=== PATIENT | female | born 1985 | race Caucasian/White ===

== ENCOUNTER 2019-04-22 18:28 | Emergency (ER) | payer OTHER, SELFPAY ==
--- OUTSIDE RECORDS SUMMARY | 2019-04-22 18:30 | XMS REPORT ---
:1985 [facility] Address [address] [place] [address] Dr. Hood [address] [place] [id number] Care Team Providers Name Role Phone Unavailable Unavailable Unavailable Problems This patient has no known problems. Allergies, Adverse Reactions, Alerts This patient has no known allergies or adverse reactions. Medications This patient has no known medications.
--- NOTE | 2019-04-22 19:27 | RAD REPORT ---
EXAM DESCRIPTION: RAD - Foot Left 3 View - 04/22/2019 7:17 pm CLINICAL HISTORY: PAIN COMPARISON: No comparisons FINDINGS: Healing fracture seen involving the base of the fifth metatarsal. Lucency is also present at the base of the fourth metatarsal which may represent additional healing fracture. No acute fractu re or dislocation evident.
[2019-04-22] MEDS ORDERED: HYDROCODONE/APAP 7.5/325 MG TAB ONE (19:42)
--- NOTE | 2019-04-22 19:42 | EDPHYS ---
Physician Documentation [facility] Name: Tiana Levine Age: 34 yrs Sex: Female : 1985 Arrival Date: 04/22/2019 Time: 18:30 Bed 25 Private MD: ED Physician Clint Paredes HPI: 04/22 19:35 This 34 yrs old Female presents to ER via Ambulatory with complaints of Foot kb Injury. 19:35 The patient presents with an injury, pain, that is acute, swelling, tenderness. The kb complaints affect the left foot. Context: The problem was sustained at home, the patient can fully bear weight, the patient is able to ambulate, wears walking boot. Onset: The symptoms/episode began/occurred 2 month(s) ago. Modifying factors: The symptoms are alleviated by nothing, the symptoms are aggravated by weight bearing, movement. Associated signs and symptoms: Pertinent positives: swelling. Severity of symptoms: At their worst the symptoms were moderate, in the emergency department the symptoms are unchanged. The patient has not experienced similar symptoms in the past. The patient has been recently seen by a physician: 2 week(s) ago. Pt reports she injured her left foot 2 months ago, got it checked out 2 weeks ago and was told she had a Lorenz Fracture. States her daughter has been in the hospital so she hasn't had time to follow up with ortho. Came in tonight because she has been feeling it pop and is concerned she has further injury. 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 - Social history:: Smoking status: Patient/guardian denies using tobacco. - Ebola Screening: : No symptoms or risks identified at this time. ROS: 19:34 Constitutional: Negative for fever, chills, and weight loss, Neck: Negative for injury, kb pain, and swelling, Cardiovascular: Negative for chest pain, palpitations, and edema, Respiratory: Negative for shortness of breath, cough, wheezing, and pleuritic chest pain, Abdomen/GI: Negative for abdominal pain, nausea, vomiting, diarrhea, and constipation, Back: Negative for injury and pain, Skin: Negative for injury, rash, and discoloration, Neuro: Negative for headache, weakness, numbness, tingling, and seizure. 19:34 MS/extremity: Positive for decreased range of motion, pain, swelling, tenderness, of the lateral aspect of left foot. Exam: 19:34 Constitutional: This is a well developed, well nourished patient who is awake, alert, kb and in no acute distress. Head/Face: Normocephalic, atraumatic. Neck: Trachea midline, no thyromegaly or masses palpated, and no cervical lymphadenopathy. Supple, full range of motion without nuchal rigidity, or vertebral point tenderness. No Meningismus. Chest/axilla: Normal chest wall appearance and motion. Nontender with no deformity. No lesions are appreciated. Cardiovascular: Regular rate and rhythm with a normal S1 and S2. No gallops, murmurs, or rubs. Normal PMI, no JVD. No pulse deficits. Respiratory: Lungs have equal breath sounds bilaterally, clear to auscultation and percussion. No rales, rhonchi or wheezes noted. No increased work of breathing, no retractions or nasal flaring. Abdomen/GI: Soft, non-tender, with normal bowel sounds. No distension or tympany. No guarding or rebound. No evidence of tenderness throughout. Skin: Warm, dry with normal turgor. Normal color with no rashes, no lesions, and no evidence of cellulitis. Neuro: Awake and alert, GCS 15, oriented to person, place, time, and situation. Cranial nerves II-XII grossly intact. Motor strength 5/5 in all extremities. Sensory grossly intact. Cerebellar exam normal. Normal gait. 19:34 Musculoskeletal/extremity: Extremities: grossly normal except: noted in the lateral aspect of left foot: decreased ROM, pain, swelling, tenderness, ROM: limited active range of motion due to pain, in the lateral aspect of left foot, Circulation is intact in all extremities. Sensation intact. Weight bearing: able to fully bear weight, with walking boot. Vital Signs: 18:44 BP 128 / 82; Pulse 93; Resp 18 S; Temp 98.5(TE); Pulse Ox 99% on R/A; Weight 72.57 kg aa5 (R); Height 5 ft. 3 in. (160.02 cm) (R); Pain 8/10; 18:44 Body Mass Index 28.34 (72.57 kg, 160.02 cm) aa5 MDM: 18:48 Patient medically screened. kb 19:33 Data reviewed: vital signs, nurses notes. Data interpreted: Pulse oximetry: on room air kb is 99 %. Interpretation: normal. Counseling: I had a detailed discussion with the patient and/or guardian regarding: the historical points, exam findings, and any diagnostic results supporting the discharge/admit diagnosis, radiology results, the need for outpatient follow up, a orthopedic surgeon, to return to the emergency department if symptoms worsen or persist or if there are any questions or concerns that arise at home. 04/22 18:55 Order name: Foot Left 3 View XRAY; Complete Time: 19:38 kb Administered Medications: 19:43 Drug: [place] (7.5 mg-325 mg) 1 tabs Route: PO; aj1 Disposition: 04/23 06:43 Co-signature as Attending Physician, Clint Paredes MD I agree with the assessment and tw4 plan of care. Disposition: 04/22/19 19:41 Discharged to Home. Impression: Nondisplaced fracture of fifth metatarsal bone, left foot - healing, Nondisplaced fracture of fourth metatarsal bone, left foot - healing. - Condition is Stable. - Discharge Instructions: Metatarsal Fracture. - Medication Reconciliation Form, Thank You Letter, Antibiotic Education, Prescription Opioid Use form. - Follow up: Emergency Department; When: As needed; Reason: Worsening of condition. Follow up: Private Physician; When: 2 - 3 days; Reason: Recheck today's complaints, Continuance of care, Re-evaluation by your physician. Signatures: Dispatcher [employer] Azalea Box, SUZIC LAURIE-Anna Geiger RN RN aj1 Hailey Goldman RN RN aa5 Clint Paredes MD MD tw4 Corrections: (The following items were deleted from the chart) 04/22 20:01 19:41 04/22/2019 19:41 Discharged to Home. Impression: Nondisplaced fracture of fifth aj1 metatarsal bone, left foot - healing; Nondisplaced fracture of fourth metatarsal bone, left foot - healing. Condition is Stable. Forms are Medication Reconciliation Form, Thank You Letter, Antibiotic Education, Prescription Opioid Use. Follow up: Emergency Department; When: As needed; Reason: Worsening of condition. Follow up: Private Physician; When: 2 - 3 days; Reason: Recheck today's complaints, Continuance of care, Re-evaluation by your physician. kb
--- NOTE | 2019-04-22 19:42 | ER ---
Nurse's Notes [facility] Name: Tiana Levine Age: 34 yrs Sex: Female : 1985 Arrival Date: 04/22/2019 Time: 18:30 Bed 25 Private MD: Diagnosis: Nondisplaced fracture of fifth metatarsal bone, left foot-healing;Nondisplaced fracture of fourth metatarsal bone, left foot-healing Presentation: 04/22 18:41 Presenting complaint: Patient states: "I already have a left foot fracture and today I aa5 heard a snap so I am worried I refractured it". Transition of care: patient was not received from another setting of care. Onset of symptoms was April 2019. Risk Assessment: Do you want to hurt yourself or someone else? Patient reports no desire to harm self or others. Initial Sepsis Screen: Does the patient meet any 2 criteria? No. Patient's initial sepsis screen is negative. Does the patient have a suspected source of infection? No. Patient's initial sepsis screen is negative. Care prior to arrival: None. 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 - Social history:: Smoking status: Patient/guardian denies using tobacco. - Ebola Screening: : No symptoms or risks identified at this time. Screenin:35 Abuse screen: Denies threats or abuse. Denies injuries from another. Nutritional aj1 screening: No deficits noted. Tuberculosis screening: No symptoms or risk factors identified. 20:00 Fall Risk Fall in past 12 months (25 points). No secondary diagnosis (0 pts). No IV (0 aj1 pts). Ambulatory Aid- None/Bed Rest/Nurse Assist (0 pts). Gait- Normal/Bed Rest/Wheelchair (0 pts) Mental Status- Oriented to own ability (0 pts). Total Venegas Fall Scale indicates Low Risk Score (25-44 pts). As available Patient and Family Educated on Fall Prevention Program and strategies. Assessment: 19:35 General: Appears in no apparent distress. comfortable, Behavior is calm, cooperative, aj1 appropriate for age. Pain: Complains of pain in lateral aspect of left foot. Neuro: Level of Consciousness is awake, alert, obeys commands, Oriented to person, place, time, situation. Cardiovascular: Patient's skin is warm and dry. Respiratory: Airway is patent Respiratory effort is even, unlabored, Respiratory pattern is regular, symmetrical. GI: No signs and/or symptoms were reported involving the gastrointestinal system. : No signs and/or symptoms were reported regarding the genitourinary system. EENT: No signs and/or symptoms were reported regarding the EENT system. Derm: No signs and/or symptoms reported regarding the dermatologic system. Skin is pink, warm \\T\\ dry. normal. Musculoskeletal: Range of motion: limited in left ankle. Vital Signs: 18:44 BP 128 / 82; Pulse 93; Resp 18 S; Temp 98.5(TE); Pulse Ox 99% on R/A; Weight 72.57 kg aa5 (R); Height 5 ft. 3 in. (160.02 cm) (R); Pain 8/10; 18:44 Body Mass Index 28.34 (72.57 kg, 160.02 cm) aa5 ED Course: 18:30 Patient arrived in ED. rg4 18:41 Arm band placed on. aa5 18:42 Triage completed. aa5 18:43 Azalea Fonseca FNP-C is [facility]. kb 18:43 Clint Paredes MD is Attending Physician. kb 19:16 Foot Left 3 View XRAY In Process Unspecified. EDMS 19:35 Anna Bangura, RN is Primary Nurse. aj1 19:35 Patient has correct armband on for positive identification. aj1 19:35 No provider procedures requiring assistance completed. aj1 19:59 Patient did not have IV access during this emergency room visit. aj1 Administered Medications: 19:43 Drug: [place] (7.5 mg-325 mg) 1 tabs Route: PO; aj1 Outcome: 19:41 Discharge ordered by . roddy 20:00 Discharged to home ambulatory. aj1 20:00 Condition: good 20:00 Discharge instructions given to patient, Instructed on discharge instructions, follow up and referral plans. Demonstrated understanding of instructions, follow-up care. 20:01 Patient left the ED. aj1 Signatures: Dispatcher [employer] EDAzalea Frausto, LAURIE-C LAURIE-Anna Geiger RN RN aj1 Hailey Goldman RN RN aa5 Valentine Keith 4
[2019-04-22 20:30] VITALS: BP 128/82; TEMP 98.5; O2SAT 99
== END 2019-04-22 20:01 | disposition home or self-care (01) ==
LOC: ER 18:28
DX: M79.672 Pain in left foot (principal); Z88.8 Allergy status to other drugs, medicaments and biological substances; Z88.2 Allergy status to sulfonamides; F90.9 Attention-deficit hyperactivity disorder, unspecified type
CPT/HCPCS: 99283

== ENCOUNTER 2020-09-04 10:34 | Emergency (ER) | payer OTHER, SELFPAY ==
--- OUTSIDE RECORDS SUMMARY | 2020-09-04 10:37 | XMS REPORT | Continuity of Care Document ---
:1985 Author Organization [facility] t Address [address] [place] [address] Dr. Reyna. [address] [place] [address] Care Team Providers Name Role Phone Provider, Urgent Care Attending Clinician Unavailable Problems This patient has no known problems. Allergies, Adverse Reactions, Alerts This patient has no known allergies or adverse reactions. Medications This patient has no known medications. Procedures This patient has no known procedures. Encounters Start End Encounter Admission Attending Care Care Encounter Source Date/Time Date/Time Type Type Clinicians Facility Department ID 2020-01-14 2020-01-14 Urgent Provider, [facility] [id number] 18:23:08 18:43:08 [facility] [id number] [facility] [id number] [place] [id number] [address] Results This patient has no known results.
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
[2020-09-04] MEDS ORDERED: ONDANSETRON 4 MG (ODT) TAB ONE (12:39)
[2020-09-04] MEDS ORDERED: KETOROLAC 30 MG/ML INJ ONE (12:39)
[2020-09-04 13:03] VITALS: TEMP 97.2
[2020-09-04 13:08] VITALS: BP 142/95; O2SAT 99
== END 2020-09-04 12:48 | disposition home or self-care (01) ==
LOC: ER 10:34
DX: G89.11 Acute pain due to trauma (principal); M62.830 Muscle spasm of back; F90.9 Attention-deficit hyperactivity disorder, unspecified type; M19.90 Unspecified osteoarthritis, unspecified site; V49.40XA Driver injured in collision with unspecified motor vehicles in traffic accident, initial encounter
CPT/HCPCS: 71045; 72128; 72131; 96372; 99284

== ENCOUNTER 2022-02-27 11:35 | Emergency (ER) | payer BC ==
--- OUTSIDE RECORDS SUMMARY | 2022-02-27 11:40 | XMS REPORT | Continuity of Care Document ---
:1985 Author Organization [facility] t Address [address] [place] [address] [address]. [address] [place] [address] Care Team Providers Name Role Phone Asked, No Pcp Primary Care Physician Unavailable Mc BURKETT, Chaz Prabhakar Attending Clinician Saji Newsome NP Attending Clinician Parish Flynn RPH Attending Clinician Unavailable Provider, [facility] Attending Clinician Unavailable Katherine Webster Attending Clinician Payers Payer Name Policy Type Policy Number Effective Date Expiration Date [facility] [id number] 2017 [facility] MEDICAID 00:00:00 Problems Condition Condition Condition Status Onset Resolution Last Treating Co mments Source Name Details Category Date Date Treatment Clinician Date COVID-19 COVID-19 Disease Active Metho di 12-26 st 00:00: Hospita 00 l Encounter Encounter Disease Active Uni vers for tubal for tubal 8-22 ity of ligation ligation 00:00: [address] Gestationa Gestationa Disease Active U nivers l diabetes l diabetes 7-16 it y of 00:00: [address] Obesity Obesity Disease Active Univers (BMI (BMI 7-16 ity of 30-39.9) 30-39.9) 00:00: [address] Allergies, Adverse Reactions, Alerts Allergy Allergy Status Severity Reaction(s) Onset Inactive Treating Comm ents Source Name Type Date Date Clinician Sulfa Propensi Active Rash Methodi (Sulfona ty to 12 st mide adverse 00:00: Hospita Antibiot reaction 00 l ics) s to drug SULFA Drug Active Rash Univers (SULFONA Class 8-26 ity of MIDE 00:00: [place] ANTIBIOT 00 Medical ICS) Branch Sulfa Propensi Active Rash Univers (Sulfona ty to 8-26 ity of mide adverse 00:00: [place] Antibiot reaction 00 Medica l ics) s Branch Social History Social Habit Start Date Stop Date Quantity Comments Source Exposure to Not sure [facility] SARS-CoV-2 [place] [facility] (event) Branch Tobacco use and 2020-12-27 2020-12-27 Smokeless tobacco [facility] exposure 00:00:00 00:00:00 non-user Alcohol intake 2020-12-27 2020-12-27 Ex-drinker [facility] 00:00:00 00:00:00 (finding) Sex Ass[birth year] [facility] 00:00:00 00:00:00 Smoking Status Start Date Stop Date Source Never smoker [facility] Branch Medications Ordered Filled Start Stop Current Ordering Indication Dosage Frequency Signature Comments Components Source Medication Medication Date Date Medication? Clinician (SIG) Name Name No known No No known Metho di medications 9-[address] 15:10: s Hospita 20 l No known No No known Metho di medications 9-[address] 15:10: s Hospita 20 l amoxicillin 2020- No [id number] 1{tbl} Take 1 Univers -clavulanat 9-30 10-08 tablet by it y of e 00:00: 04:59 mouth 2 [place] (AUGMENTIN) 00 :00 (two) Medical 875-125 mg times Branch per tablet daily for 7 days. celecoxib Yes Take by Unive rs (CELEBREX 8-22 mouth. ity of ORAL) 15:50: [place] 16 Medical Branch HYDROcodone Yes 1{tbl} Take 1 Un antony -acetaminop 8-22 tablet by ity of hen (NORCO) 00:00: mouth [place] 10-325 mg 00 every 6 Medical tablet (six) Branch hours as needed for Pain (scale 1-3), Pain (scale 4-6) or Pain (scale 7-10). Vital Signs Vital Name Observation Time Observation Value Comments Source Systolic blood 2020-01-14 23:48:00 111 mm[Hg] Univer sity of pressure [place] [facility] Diastolic blood 2020-01-14 23:48:00 68 mm[Hg] Unive rsity of pressure [place] [facility] Heart rate 2020-01-14 23:48:00 88 /min Universi ty [facility] [place] [facility] [place] Body temperature 2020-01-14 23:48:00 37.11 Kellie Univ ersity of [facility] Branch Respiratory rate 2020-01-14 23:48:00 18 /min Univ ersity of [facility] Branch Body height 2020-01-14 23:48:00 160 cm Universi ty [facility] [place] [facility] Body weight 2020-01-14 23:48:00 81.647 kg [facility]i ty [facility] [place] [facility] BMI 2020-01-14 23:48:00 31.89 kg/m2 [facility] ty [facility] [place] Oxygen saturation in 2020-01-14 23:48:00 98 /min University of Arterial blood by [facility] Pulse oximetry Branch Systolic blood 2020-01-14 23:48:00 111 mm[Hg] Univer sity of pressure [facility] Diastolic blood 2020-01-14 23:48:00 68 mm[Hg] Unive rsity of pressure [facility] Heart rate 2020-01-14 23:48:00 88 /min [facility]i ty [facility] [place] [facility] Body temperature 2020-01-14 23:48:00 37.11 Kellie Univ ersity of [place] [facility] Respiratory rate 2020-01-14 23:48:00 18 /min Univ ersity of [facility] Body height 2020-01-14 23:48:00 160 cm [facility] Body weight 2020-01-14 23:48:00 81.647 kg [facility] [place] [facility] BMI 2020-01-14 23:48:00 31.89 kg/m2 [facility] Oxygen saturation in 2020-01-14 23:48:00 98 /min University of Arterial blood by [facility] Pulse oximetry Branch Systolic blood 2020-12-27 21:32:06 104 mm[Hg] Method [facility] pressure Diastolic blood 2020-12-27 21:32:06 78 mm[Hg] [facility] pressure Heart rate 2020-12-27 21:32:06 96 /min [facility] Body temperature 2020-12-27 21:32:06 37.17 Kellie [facility] Oxygen saturation in 2020-12-27 21:32:06 100 /min [facility] Arterial blood by Pulse oximetry Respiratory rate 2020-12-27 20:00:53 18 /min [facility] Body height 2020-12-26 20:36:00 160 cm [facility] Body weight 2020-12-26 20:36:00 82.101 kg [facility] BMI 2020-12-26 20:36:00 32.06 kg/m2 [facility] Procedures This patient has no known procedures. Plan of Care Planned Activity Planned Date Details Comments Source Future Scheduled 2022-02-14 COVID-19 VACCINE [facility] Test 00:36:00 (#1) [code = COVID-19 VACCINE (#1)] Future Scheduled 2022-02-14 [facility] 00:36:00 screening (procedure) [code = 037855644] Future Scheduled 2022-02-14 Screening for [facility] Test 00:36:00 malignant neoplasm of cervix (procedure) [code = 286834280] Future Scheduled 2022-02-14 INFLUENZA VACCINE Method [facility] Test 00:36:00 [code = INFLUENZA VACCINE] Future Scheduled 2022-02-14 HEPATITIS B [facility] Test 00:36:00 VACCINES (1 of 3 - 3-dose series) [code = HEPATITIS B VACCINES (1 of 3 - 3-dose series)] Future Scheduled 2021-05-17 COVID-19 VACCINE [facility] Test 17:21:48 (1) [code = COVID-19 VACCINE (1)] Future Scheduled 2021-05-17 [facility] Test 17:21:48 screening (procedure) [code = 912433675] Future Scheduled 2021-05-17 Screening for [facility] Test 17:21:48 malignant neoplasm of cervix (procedure) [code = 836517267] Future Scheduled 2021-05-17 INFLUENZA VACCINE Method [facility] Test 17:21:48 [code = INFLUENZA VACCINE] Encounters Start End Encounter Admission Attending Care Care Encounter Source Date/Time Date/Time Type Type Clinicians Facility Department ID 2020-12-28 2020-12-28 Outpatient [facility] [id number] Univers 14:00:00 14:00:00 [id number] [facility] [place] [facility] 2020-12-28 2020-12-28 Outpatient R [facility] [id number] Univers 14:00:00 14:00:00 [facility] 2020-12-27 2020-12-27 Infusion Mc, 1.2.840.1 [id number] Methodi 14:48:59 17:03:16 Chaz Prabhakar [id number] 3.430.2.7 Hospit a .3.348770 l .8 2020-12-26 2020-12-26 Virtual Jerod, 1.2.840.1 [id number] Methodi 14:35:14 15:49:39 Urgent Saji [id number] Care 3.430.2.7 Hospit a .3.159790 l .8 2020-12-26 2020-12-26 Outpatient [facility] [id number] [address] [place] [address] 00:00:00 00:00:[address] 2020-12-26 2020-12-26 Orders Jerod, 1.2.840.1 [id number] Methodi 00:00:00 00:00:[address] Only Saji [address]111.1.[address] 3.430.2.7 Hospit a .3.095873 l .8 2020-12-26 2020-12-26 Telephone Parish Flynn 1.2.840.1 [id number] Methodi 00:00:00 00:00:[address] 3.430.2.7 Hospit a .3.276314 l .8 2020-12-26 2020-12-26 Travel 1.2.840.1 [id number] [id number] Methodi 00:00:00 00:00:[address] 3.430.2.7 0.2.7.3.698 Ho spita .3.285916 084.8 l .8 2020-01-14 2020-01-14 Urgent Provider, [facility] [id number] Univers 18:23:08 18:43:[address] [facility] 350.1.13.10 ity [facility] 4.2.7.2.686 Ernst as Professio [phone] Sd dical [address] 2020-01-14 2020-01-14 Urgent Provider, [facility] [id number] 18:23:08 18:43:08 Care [facility] 350.1.13.10 Care [place] 4.2.7.2.686 Professio [phone] [place] [address] [address] 2020-01-14 2020-01-14 Outpatient R [facility] [id number] Univers 18:40:00 18:40:00 [id number] [facility] [place] [facility] 2020-01-14 2020-01-14 Outpatient R [facility] [id number] Univers 18:40:00 18:40:00 [facility] Results This patient has no known results.
--- NOTE | 2022-02-27 13:03 | RAD REPORT ---
EXAM DESCRIPTION: US - Transvaginal Study Probe - 02/27/2022 12:48 pm CLINICAL HISTORY: pelvic pain, (+) home UPT Pelvic pain. COMPARISON: No comparisons FINDINGS: The uterus is normal in size, shape and echotexture. The uterus measures 7.0 x 3.6 x 4.5 c m. The endometrial stripe measures 5 mm, normal. Both ovaries are normal in size, shape and echotexture. The right ovary measures 2.4 x 1.9 x 1.3 cm. The left ovary measures 1.4 x 1.4 x 2.3 cm. No ovarian or parovarian lesions. No adnexal masses. Normal Doppler blood flow was demonstrated to both ovaries. No significant pelvic ascites. IMPRESSION: No evidence of IUP seen.In the setting of a positive HCG level, this would be considered of unknown location. Recommend close interval follow-up HCG levels and follow-up pelvic so nogram in 7-10 days.
[2022-02-27 13:19] LABS: Lymphocytes % 29.1 % (15.3-44.8); MCV 94.4 fL (80-100); MPV 6.5 fL (7.6-11.3); RBC Red Blood Cell Count 4.02 M/uL (3.86-4.86)
[2022-02-27 13:31] LABS: Potassium 3.8 mmol/L (3.5-5.1)
--- NOTE | 2022-02-27 14:45 | EDPHYS ---
Physician Documentation [facility] Name: Tiana Levine Age: 36 yrs Sex: Female : 1985 Arrival Date: 02/27/2022 Time: 11:38 Bed DIS1 Private MD: ED Physician Vasquez Johansen HPI: 02/27 12:26 This 36 yrs old Female presents to ER via Ambulatory with complaints of Vaginal jmm Bleeding, + Preg <12wks, Low Back Pain, Flank Pain, Dizziness. 12:26 The patient presents to the emergency department with vaginal bleeding. The estimated jmm gestational age is 4 weeks. The patient has not experienced similar symptoms in the past. Patient complains of pelvic pain which radiates to her back. Home test positive. . 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 ld1 Historical: - Allergies: 11:52 Reglan; ld1 11:52 sulfamethoxazole-trimethoprim; ld1 - Home Meds: 11:52 Adderall Oral [Active]; hydroxychloroquine 200 mg oral tab 1 tab 2 times per day ld1 [Active]; pilocarpine HCl 1 % Opht drop 1 drop every 4 hours [Active]; propranolol 10 mg Oral tab 1 tab 4 times per day [Active]; duloxetine 60 mg oral CDRS 1 cap once daily [Active]; hyoscyamine sulfate 0.125 mg SL subl [Active]; methscopolamine 5 mg oral tab 1 tab 4 times per day [Active]; sertraline 50 mg oral tab 1 tab once daily [Active]; Tylenol-Codeine #4 300-60 mg Oral tab 1 tab every 4-6 hours [Active]; Butalbital Compound 50-325-40 mg Oral tab 1 tab every 4 hours [Active]; - PMHx: 11:52 ADD/ADHD; Arthritis; Narayan; Unspecified Auto Immune; ld1 - Immunization history:: Adult Immunizations up to date, Client reports receiving the 2nd dose of the Covid vaccine. - Social history:: Smoking status: Patient denies any tobacco usage or history of. Patient/guardian denies using alcohol. ROS: 12:26 Constitutional: Negative for fever, chills, and weight loss, Cardiovascular: Negative jmm for chest pain, palpitations, and edema, Respiratory: Negative for shortness of breath, cough, wheezing, and pleuritic chest pain. 12:26 Abdomen/GI: Positive for abdominal pain. 12:26 : Positive for vaginal bleeding. 12:26 All other systems are negative. Exam: 12:26 Constitutional: This is a well developed, well nourished patient who is awake, alert, jmm and in no acute distress. Head/Face: atraumatic. Eyes: EOMI, no conjunctival erythema appreciated ENT: Moist Mucus Membranes Neck: Trachea midline, Supple Chest/axilla: Normal chest wall appearance and motion. Cardiovascular: Regular rate and rhythm. No edema appreciated Respiratory: Normal respirations, no respiratory distress appreciated Abdomen/GI: Non distended Back: Normal ROM Skin: General appearance color normal 12:26 Musculoskeletal/extremity: ROM: intact in all extremities. 12:26 Skin: Appearance: Color: normal in color. 12:26 Neuro: Motor: is normal. Vital Signs: 11:52 BP 124 / 84; Pulse 95; Resp 18; Temp 98.5(O); Pulse Ox 99% on R/A; Weight 68.04 kg; ld1 Height 5 ft. 3 in. (160.02 cm); Pain 4/10; 11:52 Body Mass Index 26.57 (68.04 kg, 160.02 cm) ld1 MDM: 12:08 Patient medically screened. [facility] 14:44 Data reviewed: vital signs, nurses notes. Counseling: I had a detailed discussion with [facility] the patient and/or guardian regarding: the historical points, exam findings, and any diagnostic results supporting the discharge/admit diagnosis, lab results, radiology results, the need for outpatient follow up, to return to the emergency department if symptoms worsen or persist or if there are any questions or concerns that arise at home. Refusal of service: The patient/guardian displays adequate decision making capability and despite a detailed discussion of alternatives, benefits, risks, and consequences refuses: CT Scan. 02/27 12:00 Order name: Abo/rh Typing; Complete Time: 13:49 [facility] 02/27 12:00 Order name: Basic Metabolic Panel; Complete Time: 13:33 [facility] 02/27 12:00 Order name: CBC with Diff; Complete Time: 13:27 [facility] 02/27 13:44 Order name: HCG-Quantitative; Complete Time: 14:44 [facility] 02/27 12:00 Order name: IV Saline Lock; Complete Time: 14:03 [facility] 02/27 12:00 Order name: Labs collected and sent; Complete Time: 14:03 [facility] 02/27 12:00 Order name: NPO; Complete Time: 14:03 [facility] 02/27 12:00 Order name: Urine Dipstick-Ancillary (obtain specimen) [facility] 02/27 12:00 Order name: Urine Test (obtain specimen) [facility] 02/27 12:50 Order name: Transvaginal Study Probe; Complete Time: 13:05 EDMS Administered Medications: No medications were administered Disposition: 16:16 Co-signature as Attending Physician, Vasquez Johansen MD. rn Disposition Summary: 02/27/22 14:45 Discharge Ordered Location: Home [facility] Condition: Stable [facility] Diagnosis - Pelvic and perineal pain [facility] Followup: [facility] - With: Viki Calderon MD - When: 2 - 3 days - Reason: Recheck today's complaints, Continuance of care, Re-evaluation by your physician Discharge Instructions: - Discharge Summary Sheet [facility] - Pelvic Pain, Female [facility] Forms: - Medication Reconciliation Form [facility] - Thank You Letter [facility] - Antibiotic Education jmm - Prescription Opioid Use [facility] Signatures: Dispatcher [employer] EDMS Saran Patel PA PA [facility] Vasquez Johansen MD MD rn Dibbern, Lauren, RN RN ld1 Corrections: (The following items were deleted from the chart) 12:46 12:10 1st Trimest Single 1st Fetus+US.RAD.BRZ ordered. EDMS EDMS 12:48 12:46 Transvaginal OB ordered. EDMS EDMS
--- NOTE | 2022-02-27 14:45 | ER ---
Nurse's Notes [facility] Name: Tiana Levine Age: 36 yrs Sex: Female : 1985 Arrival Date: 02/27/2022 Time: 11:38 Bed DIS1 Private MD: Diagnosis: Pelvic and perineal pain Presentation: 02/27 11:57 Chief complaint: Patient states: LRQ pain/groin pain. Back pain X 2 weeks. Period 1 ld1 month late - reports spotting with cramping - previous tubal ligation. Took 3 test - they were positive. Coronavirus screen: At this time, the client does not indicate any symptoms associated with coronavirus-19. Ebola Screen: No symptoms or risks identified at this time. Initial Sepsis Screen: Does the patient meet any 2 criteria? No. Patient's initial sepsis screen is negative. Does the patient have a suspected source of infection? No. Patient's initial sepsis screen is negative. Risk Assessment: Do you want to hurt yourself or someone else? Patient reports no desire to harm self or others. Onset of symptoms was February 27, 2022. 11:57 Method Of Arrival: Ambulatory ld1 11:57 Acuity: DENISE 3 ld1 Triage Assessment: 11:52 General: Appears in no apparent distress. comfortable, Behavior is calm, cooperative, ld1 appropriate for age. Pain: Complains of pain in low back area, suprapubic area and right lower quadrant Pain does not radiate. Pain currently is 4 out of 10 on a pain scale. Quality of pain is described as throbbing. EENT: No signs and/or symptoms were reported regarding the EENT system. Neuro: Level of Consciousness is awake, alert, obeys commands, Oriented to person, place, time, situation, Appropriate for age. Cardiovascular: Capillary refill < 3 seconds Patient's skin is warm and dry. Respiratory: Airway is patent Respiratory effort is even, unlabored. GI: Abdomen is round non-distended, Reports cramping, nausea. : Reports cramping, vaginal bleeding that is with clots, spotty. Derm: No signs and/or symptoms reported regarding the dermatologic system. Musculoskeletal: No signs and/or symptoms reported regarding the musculoskeletal system. 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 ld1 Historical: - Allergies: 11:52 Reglan; ld1 11:52 sulfamethoxazole-trimethoprim; ld1 - Home Meds: 11:52 Adderall Oral [Active]; hydroxychloroquine 200 mg oral tab 1 tab 2 times per day ld1 [Active]; pilocarpine HCl 1 % Opht drop 1 drop every 4 hours [Active]; propranolol 10 mg Oral tab 1 tab 4 times per day [Active]; duloxetine 60 mg oral CDRS 1 cap once daily [Active]; hyoscyamine sulfate 0.125 mg SL subl [Active]; methscopolamine 5 mg oral tab 1 tab 4 times per day [Active]; sertraline 50 mg oral tab 1 tab once daily [Active]; Tylenol-Codeine #4 300-60 mg Oral tab 1 tab every 4-6 hours [Active]; Butalbital Compound 50-325-40 mg Oral tab 1 tab every 4 hours [Active]; - PMHx: 11:52 ADD/ADHD; Arthritis; Narayan; Unspecified Auto Immune; ld1 - Immunization history:: Adult Immunizations up to date, Client reports receiving the 2nd dose of the Covid vaccine. - Social history:: Smoking status: Patient denies any tobacco usage or history of. Patient/guardian denies using alcohol. Screenin:52 Abuse screen: Denies threats or abuse. Denies injuries from another. Nutritional ss screening: No deficits noted. Tuberculosis screening: Never had TB. Fall Risk None identified. Assessment: 14:52 General: Appears in no apparent distress. comfortable, Behavior is calm, cooperative. ss Neuro: Level of Consciousness is awake, alert, obeys commands, Oriented to person, place, time, situation. Cardiovascular: Capillary refill < 3 seconds is brisk. Respiratory: Airway is patent Respiratory effort is even, unlabored, Respiratory pattern is regular, symmetrical. Vital Signs: 11:52 BP 124 / 84; Pulse 95; Resp 18; Temp 98.5(O); Pulse Ox 99% on R/A; Weight 68.04 kg; ld1 Height 5 ft. 3 in. (160.02 cm); Pain 4/10; 11:52 Body Mass Index 26.57 (68.04 kg, 160.02 cm) ld1 ED Course: 11:38 Patient arrived in ED. rg4 11:52 Arm band placed on right wrist. ld1 11:53 Saran Patel PA is PHCP. [facility] 11:53 Vasquez Johansen MD is Attending Physician. [facility] 11:58 Triage completed. ld1 12:50 Transvaginal Study Probe In Process Unspecified. EDMS 13:13 Catarina Fletcher, RN is Primary Nurse. 13:13 Initial lab(s) drawn, by me, sent to lab. Inserted saline lock: 22 gauge in left iw antecubital area, using aseptic technique. Blood collected. 14:44 Viki Cadleron MD is Referral Physician. [facility] 14:51 No provider procedures requiring assistance completed. IV discontinued, intact, ss bleeding controlled, No redness/swelling at site. Pressure dressing applied. 14:52 Patient has correct armband on for positive identification. Bed in low position. Call ss light in reach. Administered Medications: No medications were administered Medication: 14:52 VIS not applicable for this client. ss Outcome: 14:45 Discharge ordered by MD. [facility] 14:51 Discharged to home ambulatory. ss 14:51 Condition: good 14:51 Discharge instructions given to patient, Instructed on discharge instructions, follow up and referral plans. Demonstrated understanding of instructions, follow-up care. 14:54 Patient left the ED. ss Signatures: Dispatcher [employer] EDNC Saran Patel PA PA Catarina Hull, JIN ABDI Brenda Duffy RN RN Valentine Keith rg4 Lauren Munoz RN RN ld1 Corrections: (The following items were deleted from the chart) 12:48 12:46 In radiology for Transvaginal OB. EDMS EDMS
[2022-02-27 16:00] VITALS: BP 124/84; TEMP 98.5; O2SAT 99
== END 2022-02-27 14:54 | disposition home or self-care (01) ==
LOC: ER 11:35
DX: R10.2 Pelvic and perineal pain (principal); F90.9 Attention-deficit hyperactivity disorder, unspecified type; Z88.2 Allergy status to sulfonamides; Z88.8 Allergy status to other drugs, medicaments and biological substances
CPT/HCPCS: 36415; 76830; 80048; 84702; 85025; 86900; 86901; 99283

== ENCOUNTER 2023-02-18 16:26 | Emergency (ER) | payer OTHER ==
--- OUTSIDE RECORDS SUMMARY | 2023-02-18 16:29 | XMS REPORT | Continuity of Care Document ---
:1985 Author Organization [facility] t Address [address] [place] [address] Care Team Providers Name Role Phone Asked, No Pcp Primary Care Physician Unavailable Mc BURKETT, Chaz Prabhakar Attending Clinician Jerod PRINT MANAGERSaji Attending Clinician Parish Flynn RPH Attending Clinician Unavailable Provider, [facility] Attending Clinician Unavailable Katherine Webster Attending Clinician Payers Payer Name Policy Type Policy Number Effective Date Expiration Date [employer] [id number] 2017 [facility] MEDICAID 00:00:00 Problems Condition Condition Condition Status Onset Resolution Last Treating Co mments Source Name Details Category Date Date Treatment Clinician Date COVID-19 COVID-19 Disease Active [facility]o di 12-26 [facility] 00:00: [facility]osp[facility] 00 l Encounter Encounter Disease Active Uni vers for tubal for tubal 8-22 ity of ligation ligation 00:00: [address] Gestationa Gestationa Disease Active U nivers l diabetes l diabetes 7-16 it y of 00:00: [place] [address] [facility] Obesity Obesity Disease Active Univers (BMI (BMI 7-16 ity of 30-39.9) 30-39.9) 00:00: [place] [address] [facility] Allergies, Adverse Reactions, Alerts Allergy Allergy Status [...] Quantity Comments Source Exposure to Not sure [facility]-CoV-2 (event) [facility] Alcohol intake 2020-12-27 2020-12-27 Ex-drinker [facility] 00:00:00 00:00:00 (finding) Hospital History of Social 2020-12-27 2020-12-[address] function 00:00:00 00:00:00 Hospital Tobacco use and 2020-01-14 2020-01-14 Never used Universit y of exposure 00:00:00 00:00:00 [facility] Sex Ass[birth year] At [birth year] [facility] 00:00:00 00:00:00 Hospital Smoking Status Start Date Stop Date Source Never smoker [facility] Medications Ordered Filled Start Stop Current Ordering Indication Dosage Frequency Signature Comments Components Source Medication Medication Date Date Medication? Clinician (SIG) Name Name No known No No known [facility]o di medications 9-[address] 15:10: [facility] l No known No No known Metho di medications 9-[address] 15:10: [facility] 20 l amoxicillin 2020- No [id number] 1{tbl} Take 1 Univers -clavulanat 9-30 10-08 [...] 23:48:00 111 mm[Hg] Univer sity of pressure [facility] Diastolic blood 2020-01-14 23:48:00 68 mm[Hg] Unive rsity of pressure [facility] Heart rate 2020-01-14 23:48:00 88 /min [facility] Body temperature 2020-01-14 23:48:00 37.11 Kellie [facility] Respiratory rate 2020-01-14 23:48:00 18 /min [facility] Body height 2020-01-14 23:48:00 160 cm [facility] Body weight 2020-01-14 23:48:00 81.647 kg [facility] BMI 2020-01-14 23:48:00 31.89 kg/m2 [facility] Oxygen saturation in 2020-01-14 23:48:00 98 /min [facility] of Arterial blood by [place] [facility] Pulse oximetry Branch Systolic blood 2020-01-14 23:48:00 111 mm[Hg] Univer sity of pressure [facility] Diastolic blood 2020-01-14 23:48:00 68 mm[Hg] Unive rsity of pressure [facility] Heart rate 2020-01-14 23:48:00 88 /min [facility] Body temperature 2020-01-14 23:48:00 37.11 Kellie [facility] Respiratory rate 2020-01-14 23:48:00 18 /min [facility] Body height 2020-01-14 23:48:00 160 cm [facility] Body weight 2020-01-14 23:48:00 81.647 kg [facility] BMI 2020-01-14 23:48:00 31.89 kg/m2 [facility] Oxygen saturation in 2020-01-14 23:48:00 98 /min [facility] Arterial blood by [place] [facility] Pulse oximetry Branch Systolic blood 2020-12-27 21:32:06 104 mm[Hg] [facility] pressure Diastolic blood 2020-12-27 21:32:06 78 mm[Hg] Metho [facility] pressure Heart rate 2020-12-27 21:32:06 96 /min [facility] Body temperature 2020-12-27 21:32:06 37.17 Kellie [facility] Oxygen saturation in 2020-12-27 21:32:06 100 /min [facility] Arterial blood by Pulse oximetry Respiratory rate 2020-12-27 20:00:53 18 /min [facility] Body height 2020-12-26 20:36:00 160 cm [facility] Body weight 2020-12-26 20:36:00 82.101 kg [facility] BMI 2020-12-26 20:36:00 32.06 kg/m2 [facility] Procedures This patient has no known procedures. Plan of Care Planned Activity Planned Date Details Comments Source Future Scheduled 2023-02-11 COVID-19 VACCINE [facility] Test 01:42:42 (#1) [code = COVID-19 VACCINE (#1)] Future Scheduled 2023-02-11 Hepatitis C [facility] Test 01:42:42 screening (procedure) [code = 493534790] Future Scheduled 2023-02-11 Screening for [facility] Test 01:42:42 malignant neoplasm of cervix (procedure) [code = 857075603] Future Scheduled 2023-02-11 INFLUENZA VACCINE [facility] Test 01:42:42 (#1) [code = INFLUENZA VACCINE (#1)] Future Scheduled 2022-02-14 [facility] 00:36:00 VACCINES (1 of 3 - 3-dose series) [code = HEPATITIS B VACCINES (1 of 3 - 3-dose series)] Future Scheduled 2022-02-14 COVID-19 VACCINE [facility] Test 00:36:00 (#1) [code = COVID-19 VACCINE (#1)] Future Scheduled 2022-02-14 [facility] 00:36:00 screening (procedure) [code = 590462913] Future Scheduled 2022-02-14 Screening for [facility] Test 00:36:00 malignant neoplasm of cervix (procedure) [code = 129356176] Future Scheduled 2022-02-14 INFLUENZA VACCINE [facility] Test 00:36:00 [code = INFLUENZA VACCINE] Future Scheduled 2021-05-17 [facility] Test 17:21:48 (1) [code = COVID-19 VACCINE (1)] Future Scheduled 2021-05-17 [facility] 17:21:48 screening (procedure) [code = 220628214] Future Scheduled 2021-05-17 [facility] Test 17:21:48 malignant neoplasm of cervix (procedure) [code = 675225577] Future Scheduled 2021-05-17 INFLUENZA VACCINE [facility] Test 17:21:48 [code = INFLUENZA VACCINE] Encounters Start End Encounter Admission Attending Care Care Encounter Source Date/Time Date/Time Type Type Clinicians Facility Department ID 2023-01-15 2023-01-15 Outpatient [facility] [id number] [place] 11:34:11 11:34:11 [id number] [place] 2023-01-08 2023-01-08 Outpatient [facility] [place] 13:55:07 13:55:07 [id number] [place] 2023-01-02 2023-01-02 Outpatient [facility] [place] 13:09:14 13:09:14 [id number] F [place] 2020-12-28 2020-12-28 Outpatient [facility] [id number] Univers 14:00:00 14:00:00 [id number] [facility] 2020-12-28 2020-12-28 Outpatient R [facility] [id number] Univers 14:00:00 14:00:00 [facility] 2020-12-27 2020-12-27 Infusion Mc, 1.2.840.1 [id number] Methodi 14:48:59 17:03:16 Chaz Prabhakar [address] 3.430.2.7 Hospit a .3.255465 l .8 2020-12-26 2020-12-26 Ander Paredes.2.840.1 [id number] Methodi 14:35:14 15:49:39 Urgent Saji [address]9952.1.[address] Care 3.430.2.7 Hospit a .3.368705 l .8 2020-12-26 2020-12-26 Outpatient [facility] [id number] [address] [place] [address] 00:00:00 00:00:[address] 2020-12-26 2020-12-26 Orders Jerod, 1.2.840.1 [id number] Methodi 00:00:00 00:00:00 Only Saji [id number] 3.430.2.7 Hospit a .3.802877 l .8 2020-12-26 2020-12-26 Telephone Parish Flynn 1.2.840.1 [id number] Methodi 00:00:00 00:00:[id number] 3.430.2.7 Hospit a .3.542329 l .8 2020-12-26 2020-12-26 Travel 1.2.840.1 1.2.873.101 [id number] Methodi 00:00:00 00:00:[address] 3.430.2.7 0.2.7.3.698 Ho spita .3.861232 084.8 l .8 2020-01-14 2020-01-14 Urgent Provider, [facility] 1.2.840.114 [id number] Univers 18:23:08 18:43:08 Care [place], Katherine [facility] 350.1.13.10 ity of Christine 4.2.7.2.686 Ernst as Professio [id number] [place] [address] 2020-01-14 2020-01-14 Urgent Provider, [facility] [id number] 18:23:08 18:43:08 Care [facility] 350.1.13.10 Care Christine 4.2.7.2.686 Professio [phone] [place] [address] [address] 2020-01-14 2020-01-14 Outpatient R [facility] [id number] Univers 18:40:00 18:40:00 [id number] ity [facility] 2020-01-14 2020-01-14 Outpatient R [facility] [id number] Univers 18:40:00 18:40:00 [facility] Results This patient has no known results.
[2023-02-18 18:10] LABS: Specific Gravity 1.012 (1.005-1.030)
[2023-02-18 18:17] LABS: Urine Bacteria None Seen /HPF (<20); Urine Crystals Unidentified Few /HPF (None Seen); Urine RBC <5 /HPF (None Seen)
[2023-02-18] MEDS ORDERED: dexAMETHasone 10 MG/ML VIAL ONE (19:03)
[2023-02-18] MEDS ORDERED: MORPHINE 4 MG/ML SYR ONE (19:03)
[2023-02-18] MEDS ORDERED: KETOROLAC 30 MG/ML INJ ONE (19:04)
[2023-02-18] MEDS ORDERED: LIDOCAINE 4% PATCH ONE (19:05)
--- NOTE | 2023-02-18 19:06 | EDPHYS ---
Physician Documentation [facility] Name: Tiana Kincaid Age: 37 yrs Sex: Female : 1985 Arrival Date: 02/18/2023 Time: 16:26 Bed DX4 Private MD: ED Physician Vasquez Johansen HPI: 02/18 17:00 This 37 yrs old Female presents to ER via Ambulatory with complaints of Low Back Pain. cp 17:00 The patient presents with pain exacerbation of chronic back pain. The symptoms are cp located in the low back. The pain radiates to the left leg. 17:00 The problem was sustained when bending over. cp 17:00 Onset: The symptoms/episode began/occurred 3 day(s) ago. Associated signs and symptoms: cp Pertinent positives: weakness, Pertinent negatives: abdominal pain, chest pain, dysuria, fever, hematuria, incontinence, numbness. Severity of symptoms: in the emergency department the symptoms are unchanged, despite home interventions. The patient has experienced similar episodes in the past, multiple times, history of chronic low back pain. Historical: - Allergies: 16:45 Reglan; cm10 16:45 sulfamethoxazole-trimethoprim; cm10 - PMHx: 16:45 ADD/ADHD; Narayan; Arthritis; Unspecified Auto Immune; cm10 - Immunization history:: Adult Immunizations unknown. - Social history:: Smoking status: Patient denies any tobacco usage or history of. ROS: 17:05 Constitutional: Negative for body aches, chills, fever, poor PO intake, cp 17:05 Cardiovascular: Negative for chest pain, edema, palpitations, cp 17:05 Respiratory: Negative for cough, shortness of breath, wheezing, 17:05 Abdomen/GI: Positive for constipation, Negative for abdominal pain, nausea, vomiting, and diarrhea, diarrhea, bowel incontinence, 17:05 Back: Positive for pain at rest, pain with movement, of the left low back, 17:05 : Positive for difficulty urinating, Negative for hematuria, burning with urination, bladder incontinence, 17:05 MS/extremity: Positive for pain, of the left leg, weakness, Negative for paresthesias, 17:05 Neuro: Negative for altered mental status, dizziness, headache, 17:05 All other systems are negative, Exam: 17:10 Constitutional: The patient appears in no acute distress, alert, awake, non-toxic, well cp developed, well nourished, uncomfortable, 17:10 Head/Face: Normocephalic, atraumatic. cp 17:10 Eyes: Periorbital structures: appear normal, Conjunctiva: normal, no exudate, no injection, Sclera: no appreciated abnormality, Lids and lashes: appear normal, bilaterally, 17:10 ENT: External ear(s): are unremarkable, Nose: is normal, Mouth: Lips: moist, Oral mucosa: pink and intact, moist, Posterior pharynx: is normal, airway is patent, no erythema, no exudate, 17:10 Neck: ROM/movement: is normal, is supple, without pain, no range of motions limitations, 17:10 Chest/axilla: Inspection: normal, 17:10 Cardiovascular: Rate: tachycardic, Rhythm: regular, Edema: is not appreciated, 17:10 Respiratory: the patient does not display signs of respiratory distress, Respirations: normal, no use of accessory muscles, no retractions, labored breathing, is not present, 17:10 Abdomen/GI: Exam negative for discomfort, distension, guarding, Inspection: abdomen appears normal, 17:10 Back: pain, that is moderate, of the left low back, ROM is painful, with all movement, 17:10 Neuro: Orientation: to person, place \T\ time. Mentation: is normal, Motor: moves all fours, strength is normal, Sensation: is normal, Vital Signs: 16:43 BP 118 / 81; Pulse 112; Resp 18; Temp 98.7(TE); Pulse Ox 100% on R/A; Weight 70.76 kg; cm10 Height 5 ft. 4 in. ; Pain 10/10; 16:43 Body Mass Index 26.78 (70.76 kg, 162.56 cm) cm10 16:43 Pain Scale: Adult cm10 MDM: 16:52 Patient medically screened. cp 18:00 Differential diagnosis: sciatica, Herniated disc UTI, cauda equina, spinal stenosis. cp 19:04 Data reviewed: vital signs, nurses notes, lab test result(s), urinalysis. cp 19:04 I considered the following discharge prescriptions or medication management in the emergency department Medications were administered in the Emergency Department. See MAR. Care significantly affected by the following chronic conditions: back pain. Counseling: I had a detailed discussion with the patient and/or guardian regarding the historical points, exam findings, and any diagnostic results supporting the discharge/admit diagnosis, lab results, the need for outpatient follow up, a family practitioner, a landscape painter, to return to the emergency department if symptoms worsen or persist or if there are any questions or concerns that arise at home. Response to treatment: improved, and as a result, I will discharge patient. 02/18 16:53 Order name: Urine Microscopic Only; Complete Time: 18:37 cp 02/18 18:38 Interpretation: Reviewed. cp 02/18 16:53 Order name: PREGU; Complete Time: 18:37 cp Administered Medications: 18:59 Drug: Ketorolac IM 30 mg IM once Route: IM; Site: right deltoid; hb 19:28 Follow up: Response: No adverse reaction hb 18:59 Drug: Dexamethasone IM 10 mg IM once Route: IM; Site: left deltoid; hb 19:28 Follow up: Response: No adverse reaction hb 18:59 Drug: morphine IM 4 mg IM once Route: IM; Site: left deltoid; hb 19:28 Follow up: Response: No adverse reaction hb 18:59 Drug: Lidoderm Topical Patch 5 % (700 mg/patch) 1 patches Topical once; leave on for 12 hb hours; cover most painful area; may cut into smaller pieces Route: Topical; Site: affected area; 19:28 Follow up: Response: No adverse reaction hb Disposition: 02/19 17:20 Co-signature as Attending Physician, Vasquez Johansen MD I reviewed the patient's care rn provided by the Advanced Practice Provider and agree with the diagnosis and treatment plan. Disposition Summary: 02/18/23 19:05 Discharge Ordered Notes: Location: Home cp Problem: new cp Symptoms: have improved cp Condition: Stable cp Diagnosis - Lumbago with sciatica, left side cp Followup: cp - With: Private Physician - When: 2 - 3 days - Reason: Recheck today's complaints Discharge Instructions: - Discharge Summary Sheet cp - Sciatica cp Forms: - Medication Reconciliation Form cp - Thank You Letter cp - Antibiotic Education cp - Prescription Opioid Use cp - Patient Portal Instructions cp - Leadership Thank You Letter cp Prescriptions: - Cyclobenzaprine 10 mg Oral Tablet - take 1 tablet ORAL route every 8 hours As needed; 30 tablet; Refills: 0, cp Product Selection Permitted - Diclofenac Sodium 75 mg Oral Tablet Sustained Release - take 1 tablet ORAL route 2 times per day; 30 tablet; Refills: 0, Product cp Selection Permitted - Medrol (Cole) 4 mg Oral Tablets, Dose Pack - take 1 tablet ORAL route as directed - follow package instructions; 1 packet; cp Refills: 0, Product Selection Permitted Signatures: Dispatcher [employer] EDVasquez Sanchez MD MD rn Page, Corey, PA PA cp Kelly James RN RN Mercy Okeefe RN RN cm10 Corrections: (The following items were deleted from the chart) 02/18 19:28 16:53 Bladder Scanner ordered. cp 02/19 13:48 02/18 17:00 The patient presents with pain that is acute, cp cp
--- NOTE | 2023-02-18 19:06 | ER ---
Nurse's Notes [facility] Name: Tiana Kincaid Age: 37 yrs Sex: Female : 1985 Arrival Date: 02/18/2023 Time: 16:26 Bed DX4 Private MD: Diagnosis: Lumbago with sciatica, left side Presentation: 02/18 16:43 Chief complaint: Patient states: that she has a herniated disc in her lower back and is cm10 due for her steroid shots. Pt states that she bent over too fast and is now having low back pain. Coronavirus screen: Vaccine status: Patient reports being unvaccinated. Client denies travel out of the [place] in the last 14 days. Ebola Screen: Patient denies travel to an Ebola-affected area in the 21 days before illness onset. No symptoms or risks identified at this time. Initial Sepsis Screen: Does the patient meet any 2 criteria? No. Patient's initial sepsis screen is negative. Does the patient have a suspected source of infection? No. Patient's initial sepsis screen is negative. Risk Assessment: Do you want to hurt yourself or someone else? Patient reports no desire to harm self or others. Onset of symptoms was February 18, 2023. 16:43 Method Of Arrival: Ambulatory 10 16:43 Acuity: DENISE 4 cm10 Triage Assessment: 19:29 General: Appears uncomfortable, Behavior is calm, cooperative, appropriate for age. hb Pain: Complains of pain in back. Historical: - Allergies: 16:45 Reglan; cm10 16:45 sulfamethoxazole-trimethoprim; cm10 - PMHx: 16:45 ADD/ADHD; Narayan; Arthritis; Unspecified Auto Immune; cm10 - Immunization history:: Adult Immunizations unknown. - Social history:: Smoking status: Patient denies any tobacco usage or history of. Screenin:28 [facility] ED Fall Risk Assessment (Adult) History of falling in the last 3 months, hb including since admission No falls in past 3 months (0 pts). Abuse screen: Denies threats or abuse. Denies injuries from another. Nutritional screening: No deficits noted. Tuberculosis screening: No symptoms or risk factors identified. Vital Signs: 16:43 BP 118 / 81; Pulse 112; Resp 18; Temp 98.7(TE); Pulse Ox 100% on R/A; Weight 70.76 kg; cm10 Height 5 ft. 4 in. ; Pain 10/10; 16:43 Body Mass Index 26.78 (70.76 kg, 162.56 cm) cm10 16:43 Pain Scale: Adult cm10 ED Course: 16:27 Patient arrived in ED. rg4 16:31 Victor Manuel Dudley PA is PHCP. cp 16:31 Vasquez Johansen MD is Attending Physician. cp 16:45 Triage completed. cm10 16:46 Arm band placed on Patient placed in an exam room, on a stretcher. cm10 18:01 PREGU Sent. cm10 18:01 Urine Microscopic Only Sent. cm10 19:27 Kelly James, JIN is Primary Nurse. hb 19:28 Patient has correct armband on for positive identification. hb 19:28 No provider procedures requiring assistance completed. Patient did not have IV access hb during this emergency room visit. Administered Medications: 18:59 Drug: Ketorolac IM 30 mg IM once Route: IM; Site: right deltoid; hb 19:28 Follow up: Response: No adverse reaction hb 18:59 Drug: Dexamethasone IM 10 mg IM once Route: IM; Site: left deltoid; hb 19:28 Follow up: Response: No adverse reaction hb 18:59 Drug: morphine IM 4 mg IM once Route: IM; Site: left deltoid; hb 19:28 Follow up: Response: No adverse reaction hb 18:59 Drug: Lidoderm Topical Patch 5 % (700 mg/patch) 1 patches Topical once; leave on for 12 hb hours; cover most painful area; may cut into smaller pieces Route: Topical; Site: affected area; 19:28 Follow up: Response: No adverse reaction hb Outcome: 19:05 Discharge ordered by . cp 19:28 Discharged to home ambulatory, hb 19:28 Condition: stable 19:28 Discharge instructions given to patient, Instructed on discharge instructions, follow up and referral plans. medication usage, Demonstrated understanding of instructions, follow-up care, medications, Prescriptions given X 3, 19:29 Patient left the ED. hb Signatures: Victor Manuel Dudley PA PA cp Kelly James, JIN RN Valentine Lopez rg4 Mercy Okeefe RN RN cm10
[2023-02-18 19:34] VITALS: BP 118/81; TEMP 98.7; O2SAT 100
== END 2023-02-18 19:29 | disposition home or self-care (01) ==
LOC: ER 16:26
DX: M54.42 Lumbago with sciatica, left side (principal); Z88.2 Allergy status to sulfonamides; Z88.8 Allergy status to other drugs, medicaments and biological substances
CPT/HCPCS: 81025; 81015; 96372; 99284; J2001; J1100

== ENCOUNTER → 2023-05-13 | Emergency (ER) | payer OTHER ==
[~2023-05-13] MED LIST: FENTANYL CITR 100 MCG/2 ML ONE; KETOROLAC 30 MG/ML INJ ONE; MORPHINE 2 MG/ML SYR ONE; MORPHINE 4 MG/ML SYR ONE; NA CHLORIDE 0.9% 1,000 ML ONE; ONDANSETRON 4 MG/2 ML VIAL ONE
[2023-05-13 14:47] LABS: Specific Gravity 1.007 (1.005-1.030); Urine Bilirubin NEGATIVE (Negative); Urine Blood Negative (Negative); Urine Clarity Clear (Clear); Urine Color Light-Yellow (Yellow); Urine Glucose NEGATIVE (Negative); Urine Protein NEGATIVE (Negative); Urine Urobilinogen Normal (Normal)
[2023-05-13 14:55] LABS: Absolute Lymphocytes (CBC) 2.2 K/uL (0.7-4.9); Hematocrit 37.7 % (36.0-45.0); Lymphocytes % 26.6 % (15.3-44.8); MCV 90.8 fL (80-100); MPV 6.9 fL (7.6-11.3); Platelets 323 thou/uL (152-406); RBC Red Blood Cell Count 4.16 M/uL (3.86-4.86)
[2023-05-13 15:05] LABS: Bilirubin Total 0.3 mg/dL (0.2-1.0); Potassium 4.3 mEq/L (3.5-5.1); Protein, Total 7.7 g/dL (6.4-8.2)
--- NOTE | 2023-05-13 15:23 | RAD REPORT ---
EXAM DESCRIPTION: CTAbdomen Pelvis Wo Contrast - 05/13/2023 3:11 pm CLINICAL HISTORY: FLANK PAIN COMPARISON: CT ABD PELVIS W CONTRAST dated 01/08/2013 TECHNIQUE: CT of the abdomen and pelvis was performed. All CT scans are performed using dose optimization technique as appropriate and may include automated exposure control or mA/KV adjustment according to patient size. FINDINGS: Lower chest: No acute abnormality. Liver: Low-density lesion in segment 4 of the liver near the falciform ligament is almost certainly b enign. Biliary: No biliary ductal dilatation. Cholelithiasis without CT is acute cholecystitis. Stomach: No significant focal abnormality. Duodenum: No significant focal abnormality. Pancreas: No significant abnormality. Spleen: No significant abnormality. Adrenal: No suspicious lesions. Kidney/ureter: No hydronephrosis. No renal calculi. Retroperitoneum: No retroperitoneal adenopathy. Vascular: No aneurysm. Bowel: Normal appendix.. Mild formed stool burden in the colon. No bowel obstruction. Peritoneum: No ascites or free air. Bladder: Grossly unremarkable. Reproductive: No adnexal masses. Bones: No acute fracture. Other: n/a IMPRESSION: No acute intra-abdominal or pelvic finding. No renal or ureteral calculi. Normal appendi x.
--- NOTE | 2023-05-13 17:50 | RAD REPORT ---
EXAM DESCRIPTION: US - Abdomen Exam Limited - 05/13/2023 5:41 pm CLINICAL HISTORY: ruq pain COMPARISON: Abdomen Pelvis Wo Contrast dated 05/13/2023 FINDINGS: The gallbladder demonstrates small mobile gallstones. No pericholecystic fluid or gallblad analilia wall thickening. The common bile duct is mildly dilated measuring 7 mm. The liver demonstrates no findings of intrahepatic biliary dilatation. IMPRESSION: Cholelithiasis without sonographic evidence of acute cholecystitis. Mild biliary ductal dilatation. Correlate with LFTs. If abnormal, could consider MRCP to further evaluate.
--- NOTE | 2023-05-13 17:58 | ER ---
Nurse's Notes [facility] Name: Tiana Kincaid Age: 38 yrs Sex: Female : 1985 Arrival Date: 05/13/2023 Time: 13:50 Bed 3 Private MD: Diagnosis: Other cholelithiasis without obstruction Presentation: 05/13 14:21 Chief complaint: Right flank pain, difficulty urinating, and blood in urine since last hb night. Hx of kidney stones. Coronavirus screen: At this time, the client does not indicate any symptoms associated with coronavirus-19. Ebola Screen: No symptoms or risks identified at this time. Initial Sepsis Screen: Does the patient meet any 2 criteria? No. Patient's initial sepsis screen is negative. Does the patient have a suspected source of infection? No. Patient's initial sepsis screen is negative. Risk Assessment: Do you want to hurt yourself or someone else? Patient reports no desire to harm self or others. Onset of symptoms was May 12, 2023. 14:21 Method Of Arrival: Ambulatory hb 14:21 Acuity: DENISE 3 hb Triage Assessment: 14:30 General: Appears uncomfortable, Behavior is cooperative, appropriate for age, anxious. bp Pain: Complains of pain in right low back and right mid back. : Reports pain in right flank(s). Historical: - Allergies: 14:23 Reglan; hb 14:23 sulfamethoxazole-trimethoprim; hb - PMHx: 14:23 ADD/ADHD; Narayan; Arthritis; Unspecified Auto Immune; hb - Immunization history:: Adult Immunizations unknown. - Social history:: Smoking status: Patient denies any tobacco usage or history of. - Family history:: not pertinent. Screenin:46 [facility] ED Fall Risk Assessment (Adult) History of falling in the last 3 months, ph including since admission No falls in past 3 months (0 pts) Score/Fall Risk Level 0 - 2 = Low Risk Oriented to surroundings, Maintained a safe environment, Provided non-skid footwear, Hourly rounding (assess needs \T\ fall precautionary measures) done. Abuse screen: Denies threats or abuse. Denies injuries from another. Nutritional screening: No deficits noted. Tuberculosis screening: No symptoms or risk factors identified. Assessment: 14:47 General: Appears in no apparent distress. uncomfortable, Behavior is cooperative, ph appropriate for age. Pain: Complains of pain in right mid back and right low back Pain radiates to right lower quadrant. Neuro: Level of Consciousness is awake, alert, obeys commands, Oriented to person, place, time, situation. Cardiovascular: Capillary refill < 3 seconds in bilateral fingers Patient's skin is warm and dry. Respiratory: Airway is patent Respiratory effort is even, unlabored. GI: Abdomen is round non-distended, Reports lower abdominal pain, nausea. : Reports pain in right flank(s), lower quadrant(s) in lower back. Derm: Skin is pink, warm \T\ dry. Musculoskeletal: Circulation, motion, and sensation intact. Range of motion: intact in all extremities. 15:38 Reassessment: Patient appears in no apparent distress at this time. Patient and/or ph family updated on plan of care and expected duration. Pain level reassessed. Patient is alert, oriented x 3, equal unlabored respirations, skin warm/dry/pink. 16:55 Reassessment: Patient appears in no apparent distress at this time. Patient is alert, bp oriented x 3, equal unlabored respirations, skin warm/dry/pink. 18:12 Reassessment: DC HOME AMBULATORY. bp Vital Signs: 14:21 BP 125 / 100; Pulse 76; Resp 16; Temp 97.8(TE); Pulse Ox 98% on R/A; Pain 10/10; hb 14:45 BP 119 / 81; Pulse 72; Resp 18; Pulse Ox 99% on R/A; ph 15:00 BP 113 / 90; Pulse 69; Resp 18; Pulse Ox 100% on R/A; ph 16:55 BP 111 / 82; Pulse 65; Resp 16; Pulse Ox 100% ; bp 14:21 Pain Scale: Adult hb ED Course: 13:53 Patient arrived in ED. mr 14:02 Santosh Foley MD is Attending Physician. rt 14:23 Triage completed. hb 14:23 Arm band placed on. hb 14:34 Initial lab(s) drawn, by me, sent to lab. Inserted saline lock: 20 gauge in left aa5 antecubital area, using aseptic technique. Blood collected. 14:35 Urine collected: clean catch specimen. aa5 14:37 Rei Jacobs, RN is Primary Nurse. bp 14:47 Patient has correct armband on for positive identification. Bed in low position. Call ph light in reach. Side rails up X 1. Pulse ox on. NIBP on. Door closed. Noise minimized. Warm blanket given. 15:12 CT Abd/Pelvis - Without Contrast In Process Unspecified. EDMS 17:02 No provider procedures requiring assistance completed. ph 17:43 US Abdomen Limited In Process Unspecified. EDMS 17:58 Mahad Stiles MD is Referral Physician. rt 18:12 IV discontinued, intact, bleeding controlled, No redness/swelling at site. Pressure bp dressing applied. Administered Medications: 14:45 Drug: morphine IVP or IV 4 mg IVP once over 4 mins Route: IVP; Infused Over: 4 mins; ph Site: left antecubital; 17:23 Follow up: Response: No adverse reaction bp 14:45 Drug: Ondansetron IVP 4 mg IVP once; over 2 minutes Route: IVP; Site: left antecubital; ph 17:23 Follow up: Response: No adverse reaction bp 14:45 Drug: NS 0.9% IV 1000 ml IV at 1 bolus Per protocol; 1000 mL bolus Route: IV; Rate: 1 ph bolus; Site: left antecubital; 17:24 Follow up: IV Status: Completed infusion; IV Intake: 1000ml bp 15:37 Drug: Ketorolac IVP 15 mg IVP once Route: IVP; Site: left antecubital; ph 17:23 Follow up: Response: No adverse reaction bp 15:37 Drug: morphine IVP or IV 2 mg IVP once over 4 mins Route: IVP; Infused Over: 4 mins; ph Site: left antecubital; 17:24 Follow up: Response: No adverse reaction bp 17:23 Drug: fentaNYL (PF) IVP 50 mcg IVP once Route: IVP; Site: left antecubital; bp Medication: 14:49 VIS not applicable for this client. ph Intake: 17:24 IV: 1000ml; Total: 1000ml. bp Outcome: 17:58 Discharge ordered by . rt 18:12 Discharged to home ambulatory, bp 18:12 Condition: stable 18:12 Discharge instructions given to patient, Instructed on discharge instructions, follow up and referral plans. medication usage, Demonstrated understanding of instructions, follow-up care, medications, Prescriptions given X 2, 18:13 Patient left the ED. bp Signatures: Dispatcher [employer] EDAK Akshat, Jia, Reg Reg mr JonesHailey, RN RN aa5 Mary Ruano RN RN Kelly Araiza, JIN RN Rei Jacobs RN RN Santosh Rowe MD MD rt
--- NOTE | 2023-05-13 17:58 | EDPHYS ---
Physician Documentation [facility] Name: Tiana Kincaid Age: 38 yrs Sex: Female : 1985 Arrival Date: 05/13/2023 Time: 13:50 Bed 3 Private MD: ED Physician Santosh Foley HPI: 05/13 18:05 This 38 yrs old Female presents to ER via Ambulatory with complaints of Possible Kidney rt Stone. 18:05 Patient presents to the ED with pain to the right upper abdomen on the side starting rt last night. She did report hematuria. She states that she has had a history of kidney stones, states that this is similar to prior episodes. Reports nausea, vomiting. Pain is sharp in nature, nonradiating. Denies other acute complaints, symptoms are moderate severity, no other aggravating relieving factors.. Historical: - Allergies: 14:23 Reglan; hb 14:23 sulfamethoxazole-trimethoprim; hb - PMHx: 14:23 ADD/ADHD; Narayan; Arthritis; Unspecified Auto Immune; hb - Immunization history:: Adult Immunizations unknown. - Social history:: Smoking status: Patient denies any tobacco usage or history of. - Family history:: not pertinent. ROS: 18:05 Constitutional: Negative for fever, chills, and weight loss, Cardiovascular: Negative rt for chest pain, palpitations, and edema, Respiratory: Negative for shortness of breath, cough, wheezing, and pleuritic chest pain, MS/Extremity: Negative for injury and deformity, Skin: Negative for injury, rash, and discoloration, Neuro: Negative for headache, weakness, numbness, tingling, and seizure, 18:05 Abdomen/GI: Positive for abdominal pain, nausea, 18:05 Back: Positive for flank pain, Negative for injury or acute deformity, 18:05 : Positive for flank pain, hematuria, Negative for Exam: 18:05 Constitutional: This is a well developed, well nourished patient who is awake, alert, rt and in no acute distress. Head/Face: Normocephalic, atraumatic. Chest/axilla: Normal chest wall appearance and motion. Nontender with no deformity. No lesions are appreciated. Cardiovascular: Regular rate and rhythm with a normal S1 and S2. No gallops, murmurs, or rubs. Normal PMI, no JVD. No pulse deficits. Respiratory: Lungs have equal breath sounds bilaterally, clear to auscultation and percussion. No rales, rhonchi or wheezes noted. No increased work of breathing, no retractions or nasal flaring. Skin: Warm, dry with normal turgor. Normal color with no rashes, no lesions, and no evidence of cellulitis. MS/ Extremity: Pulses equal, no cyanosis. Neurovascular intact. Full, normal range of motion. Neuro: Awake and alert, GCS 15, oriented to person, place, time, and situation. Cranial nerves II-XII grossly intact. Motor strength 5/5 in all extremities. Sensory grossly intact. Cerebellar exam normal. Normal gait. 18:05 Abdomen/GI: Tenderness to the right upper quadrant, no guarding, rebound, distention, 18:05 Back: Right CVAT, no midline tenderness, Vital Signs: 14:21 BP 125 / 100; Pulse 76; Resp 16; Temp 97.8(TE); Pulse Ox 98% on R/A; Pain 10/10; hb 14:45 BP 119 / 81; Pulse 72; Resp 18; Pulse Ox 99% on R/A; ph 15:00 BP 113 / 90; Pulse 69; Resp 18; Pulse Ox 100% on R/A; ph 16:55 BP 111 / 82; Pulse 65; Resp 16; Pulse Ox 100% ; bp 14:21 Pain Scale: Adult hb MDM: 14:26 Patient medically screened. rt 18:05 Differential Diagnosis Cholelithiasis, kidney stone, pyelonephritis. Data reviewed: rt vital signs, nurses notes, lab test result(s), radiologic studies. Consideration of Admission/Observation Escalation of care including admission/observation considered. Patient with cholelithiasis, improved with treatment in the ED, LFTs are normal, no signs of cholecystitis. At this time, no emergent indications for cholecystectomy, was informed to follow-up with general surgery as an outpatient.. I considered the following discharge prescriptions or medication management in the emergency department Medications were administered in the Emergency Department. See MAR. Independent interpretation of the following test(s) in the Emergency Department CT Scan: My interpretation is No kidney stone seen interpretation of CT scan images. Counseling: I had a detailed discussion with the patient and/or guardian regarding the historical points, exam findings, and any diagnostic results supporting the discharge/admit diagnosis, lab results, radiology results, the need for outpatient follow up, to return to the emergency department if symptoms worsen or persist or if there are any questions or concerns that arise at home. Response to treatment: the patient's symptoms have markedly improved after treatment. 05/13 14:28 Order name: CBC with Diff; Complete Time: 15:06 rt 05/13 14:28 Order name: CMP; Complete Time: 15:06 rt 05/13 14:28 Order name: Lipase; Complete Time: 15:06 rt 05/13 14:28 Order name: Test, Urine; Complete Time: 15:06 rt 05/13 14:28 Order name: Urinalysis w/ reflexes; Complete Time: 15:06 rt 05/13 14:28 Order name: CT Abd/Pelvis - Without Contrast; Complete Time: 15:23 rt 05/13 17:11 Order name: US Abdomen Limited; Complete Time: 17:51 rt 05/13 14:28 Order name: IV Saline Lock; Complete Time: 14:38 rt 05/13 14:28 Order name: Labs collected and sent; Complete Time: 14:38 rt Administered Medications: 14:45 Drug: morphine IVP or IV 4 mg IVP once over 4 mins Route: IVP; Infused Over: 4 mins; ph Site: left antecubital; 17:23 Follow up: Response: No adverse reaction bp 14:45 Drug: Ondansetron IVP 4 mg IVP once; over 2 minutes Route: IVP; Site: left antecubital; ph 17:23 Follow up: Response: No adverse reaction bp 14:45 Drug: NS 0.9% IV 1000 ml IV at 1 bolus Per protocol; 1000 mL bolus Route: IV; Rate: 1 ph bolus; Site: left antecubital; 17:24 Follow up: IV Status: Completed infusion; IV Intake: 1000ml bp 15:37 Drug: Ketorolac IVP 15 mg IVP once Route: IVP; Site: left antecubital; ph 17:23 Follow up: Response: No adverse reaction bp 15:37 Drug: morphine IVP or IV 2 mg IVP once over 4 mins Route: IVP; Infused Over: 4 mins; ph Site: left antecubital; 17:24 Follow up: Response: No adverse reaction bp 17:23 Drug: fentaNYL (PF) IVP 50 mcg IVP once Route: IVP; Site: left antecubital; bp Disposition Summary: 05/13/23 17:58 Discharge Ordered Notes: Location: Home rt Problem: new rt Symptoms: have improved rt Condition: Stable rt Diagnosis - Other cholelithiasis without obstruction rt Followup: rt - With: Mahad Stiles MD - When: 2 - 3 days - Reason: Discharge Instructions: - Discharge Summary Sheet rt - Cholelithiasis rt Forms: - Medication Reconciliation Form rt - Thank You Letter rt - Antibiotic Education rt - Prescription Opioid Use rt - Patient Portal Instructions rt - Leadership Thank You Letter rt Prescriptions: - acetaminophen-codeine 300-30 mg Oral tablet - take 1 tablet ORAL route every 6 hours as needed for pain; 18 tablet; Refills: rt 0, Product Selection Permitted - ondansetron 4 mg Oral Tablet,disintegrating - take 1 tablet ORAL route every 6 hours as needed for nausea; 21 tablet; rt Refills: 0, Product Selection Permitted Signatures: Dispatcher [employer] Mary Nguyen RN RN Kelly Araiza RN RN Rei Jacobs RN RN bp Santosh Foley MD MD rt
[2023-05-13 21:10] VITALS: BP 111/82; TEMP 97.8; O2SAT 100
== END ==
LOC: ER 13:50
DX: K80.80 Other cholelithiasis without obstruction (principal); Z88.2 Allergy status to sulfonamides; Z88.8 Allergy status to other drugs, medicaments and biological substances
CPT/HCPCS: 85025; 36415; 81025; 81003; 83690; 80053; 74176; 76705; J3010; J2270; J2405; J7030

== ENCOUNTER 2023-05-31 17:47 | Observation (INO) | payer OTHER ==
--- NOTE | 2023-05-31 18:42 | RAD REPORT ---
EXAM DESCRIPTION: CTAbdomen Pelvis W Contrast - 05/31/2023 6:34 pm CLINICAL HISTORY: Abdominal pain. ABD PAIN COMPARISON: CT ABD PELVIS W CONTRAST dated 01/08/2013 TECHNIQUE: Biphasic CT imaging of the abdomen and pelvis was performed with 100 ml non-ionic IV cont rast. All CT scans are performed using dose optimization technique as appropriate and may include automated exposure control or mA/KV adjustment according to patient size. FINDINGS: The lung bases are clear. The liver, spleen, pancreas, adrenal glands and kidneys are within normal limits. No bowel obstruction, free air, free fluid or abscess. The appendix is normal. No evidence of signi ficant lymphadenopathy. No suspicious bony findings. IMPRESSION: No acute intra-abdominal or pelvic finding.
--- NOTE | 2023-05-31 18:44 | RAD REPORT ---
EXAM DESCRIPTION: US - Abdomen Exam Limited - 05/31/2023 6:35 pm CLINICAL HISTORY: ABD PAIN COMPARISON: Abdomen Exam Limited dated 05/13/2023 FINDINGS: The gallbladder demonstrates contraction with small gallstones. No pericholecystic fluid o r gallbladder wall thickening. The common bile duct is normal measuring 3 mm. The liver demonstrates no findings of intrahepatic biliary dilatation. IMPRESSION: Suspected cholelithiasis.
[2023-05-31] MEDS ORDERED: ONDANSETRON 4 MG/2 ML VIAL ONE (19:14)
[2023-05-31] MEDS ORDERED: MORPHINE 4 MG/ML SYR ONE ×2 (19:15→20:00)
[2023-05-31] MEDS ORDERED: NA CHLORIDE 0.9% 1,000 ML ONE (19:15)
[2023-05-31 19:20] LABS: Urine Bacteria None Seen /HPF (<20); Urine Bilirubin NEGATIVE (Negative); Urine Blood Negative (Negative); Urine Clarity Clear (Clear); Urine Color Yellow (Yellow); Urine Crystals Unidentified Few /HPF (None Seen); Urine Glucose NEGATIVE (Negative); Urine Mucus Slight /HPF (None Seen); Urine Protein TRACE (Negative); Urine Urobilinogen Normal (Normal); Urine pH 6.5 (5.0-7.0)
[2023-05-31 19:31] LABS: Absolute Lymphocytes (CBC) 2.6 K/uL (0.7-4.9); Albumin 3.7 g/dL (3.4-5.0); Bilirubin Total 0.4 mg/dL (0.2-1.0); Hematocrit 36.4 % (36.0-45.0); Lymphocytes % 32.3 % (15.3-44.8); MCV 90.3 fL (80-100); MPV 6.9 fL (7.6-11.3); Platelets 261 thou/uL (152-406); Potassium 3.8 mEq/L (3.5-5.1); Protein, Total 6.9 g/dL (6.4-8.2); RBC Red Blood Cell Count 4.03 M/uL (3.86-4.86)
--- NOTE | 2023-05-31 20:12 | ER ---
Nurse's Notes [facility] Name: Tiana Kincaid Age: 38 yrs Sex: Female : 1985 Arrival Date: 05/31/2023 Time: 17:47 Bed 13 Private MD: Diagnosis: Other cholelithiasis without obstruction Presentation: 05/31 18:01 Chief complaint: Patient states: Still having upper abdominal pain from last visit here ll1 2 weeks ago, diagnosed with gallstones. + nausea, sweating, fatigue. Coronavirus screen: Client denies travel out of the [place] in the last 14 days. At this time, the client does not indicate any symptoms associated with coronavirus-19. Ebola Screen: Patient denies travel to an Ebola-affected area in the 21 days before illness onset. Initial Sepsis Screen: Does the patient meet any 2 criteria? No. Patient's initial sepsis screen is negative. Does the patient have a suspected source of infection? Yes: Acute abdominal pain. Risk Assessment: Do you want to hurt yourself or someone else? Patient reports no desire to harm self or others. Onset of symptoms was May 17, 2023. 18:01 Method Of Arrival: Ambulatory ll1 18:01 Acuity: DENISE 3 ll1 Triage Assessment: 18:03 General: Appears uncomfortable, Behavior is calm, cooperative, appropriate for age. ll1 Pain: Complains of pain in abdomen Pain currently is 8 out of 10 on a pain scale. Quality of pain is described as aching. GI: Reports upper abdominal pain, nausea. Historical: - Allergies: 18:02 sulfamethoxazole-trimethoprim; ll1 18:02 Reglan; ll1 - PMHx: 18:02 ADD/ADHD; Arthritis; Narayan; Unspecified Auto Immune; gallstones (Unspecified Auto ll1 Immune); - Immunization history:: Adult Immunizations up to date. - Social history:: Smoking status: Patient denies any tobacco usage or history of. Screenin:08 [facility] ED Fall Risk Assessment (Adult) History of falling in the last 3 months, jj7 including since admission No falls in past 3 months (0 pts) Confusion or Disorientation No (0 pts) Intoxicated or Sedated No (0 pts) Impaired Gait No (0 pts) Mobility Assist Device Used No (0 pt) Altered Elimination No (0 pt) Score/Fall Risk Level 0 - 2 = Low Risk Oriented to surroundings, Maintained a safe environment, Educated pt \T\ family on fall prevention, incl call for assistance when getting out of bed. Abuse screen: Denies threats or abuse. Nutritional screening: No deficits noted. Tuberculosis screening: No symptoms or risk factors identified. Assessment: 19:08 General: Appears in no apparent distress. uncomfortable, Behavior is calm, cooperative, jj7 appropriate for age. Pain: Complains of pain in posterior aspect of right lateral abdomen and right upper quadrant Pain currently is 8 out of 10 on a pain scale. GI: Bowel sounds present X 4 quads. Abd is soft and non tender Reports upper abdominal pain, nausea. Vital Signs: 18:01 BP 106 / 81; Pulse 92; Resp 17; Temp 98; Pulse Ox 99% ; Pain 8/10; ll1 19:08 BP 125 / 87; Pulse 81; Resp 14; Pulse Ox 98% ; Pain 8/10; jj7 20:00 BP 125 / 92; Pulse 87; Resp 16; Pulse Ox 100% ; jj7 21:23 BP 124 / 94; Pulse 81; Resp 18; Pulse Ox 97% ; Pain 4/10; jj7 18:01 Pain Scale: Adult ll1 19:08 Pain Scale: Adult jj7 21:23 Pain Scale: Adult jj7 ED Course: 17:48 Patient arrived in ED. rg4 17:49 Akira Watkins MD is Attending Physician. ec2 18:02 Triage completed. ll1 18:03 Arm band placed on. ll1 18:36 CT Abd/Pelvis - IV Contrast Only In Process Unspecified. EDMS 18:37 Abdomen Limited US In Process Unspecified. EDMS 19:08 Patient has correct armband on for positive identification. Bed in low position. Call jj7 light in reach. Adult w/ patient. 19:08 No provider procedures requiring assistance completed. Inserted saline lock: 20 gauge jj7 in left antecubital area, using aseptic technique. Blood collected. 19:24 Onur Bangura, JIN is Primary Nurse. jj7 19:26 CBC with Diff Sent. jj7 19:26 CMP Sent. jj7 19:26 Lipase Sent. jj7 20:11 Festus Clinton MD is Hospitalizing Provider. ec2 21:23 Patient admitted, IV remains in place. jj7 Administered Medications: 19:25 Drug: NS 0.9% IV 1000 ml IV at 1 bolus Per protocol; 1000 mL bolus Route: IV; Rate: 1 jj7 bolus; Site: left antecubital; 20:30 Follow up: IV Status: Completed infusion jj7 19:25 Drug: Ondansetron IVP 4 mg IVP once; over 2 minutes Route: IVP; Site: left antecubital; jj7 21:25 Follow up: Response: Nausea is decreased jj7 19:25 Drug: morphine IVP or IV 4 mg IVP once over 4 mins Route: IVP; Infused Over: 4 mins; jj7 Site: left antecubital; 21:26 Follow up: Response: Pain is unchanged, physician notified jj7 20:14 Drug: morphine IVP or IV 8 mg IVP once over 4 mins Route: IVP; Infused Over: 4 mins; jj7 Site: left antecubital; 21:25 Follow up: Response: Marked relief of symptoms jj7 Medication: 21:23 VIS not applicable for this client. jj7 Outcome: 20:11 Decision to Hospitalize by Provider. ec2 21:23 Admitted to Med/surg accompanied by tech, via wheelchair, room 415, jj7 21:23 Condition: improved 21:46 Patient left the ED. jj7 Signatures: Dispatcher [employer] Valentine Pimentel rg4 Ally Garcia RN RN ll1 Onur Bangura RN RN jj7 Akira Watkins MD MD ec2
--- NOTE | 2023-05-31 20:12 | EDPHYS ---
Physician Documentation [facility] Name: Tiana Kincaid Age: 38 yrs Sex: Female : 1985 Arrival Date: 05/31/2023 Time: 17:47 Bed 13 Private MD: ED Physician Akira Watkins HPI: 05/31 18:06 This 38 yrs old Female presents to ER via Ambulatory with complaints of ec2 Fever, Abdominal Pain. 18:06 Patient arrives today for evaluation of upper abdominal pain. Recent diagnosis of ec2 gallstones. No fevers or chills, has been having some nausea without vomiting. Does have some diarrhea as well. No significant alcohol use. Previous abdominal surgeries include .. Historical: - Allergies: 18:02 sulfamethoxazole-trimethoprim; ll1 18:02 Reglan; ll1 - PMHx: 18:02 ADD/ADHD; Arthritis; Narayan; Unspecified Auto Immune; gallstones (Unspecified Auto ll1 Immune); - Immunization history:: Adult Immunizations up to date. - Social history:: Smoking status: Patient denies any tobacco usage or history of. ROS: 18:06 Constitutional: as per hpi ec2 Exam: 18:06 Constitutional: GEN: NAD Head: atraumatic Eyes: EOMI Ears: External ears are ec2 normal. CV: regular rate LUNGS: no respiratory distress ABD: non-distended, TTP in the epigastrium, no guarding, nonrigid, right upper quadrant TTP as well. SKIN: no evidence of rashes MSK: no evidence of trauma NEURO: moves all extremities equally Vital Signs: 18:01 BP 106 / 81; Pulse 92; Resp 17; Temp 98; Pulse Ox 99% ; Pain 8/10; ll1 19:08 BP 125 / 87; Pulse 81; Resp 14; Pulse Ox 98% ; Pain 8/10; jj7 20:00 BP 125 / 92; Pulse 87; Resp 16; Pulse Ox 100% ; jj7 21:23 BP 124 / 94; Pulse 81; Resp 18; Pulse Ox 97% ; Pain 4/10; jj7 18:01 Pain Scale: Adult ll1 19:08 Pain Scale: Adult jj7 21:23 Pain Scale: Adult jj7 MDM: 18:00 Patient medically screened. ec2 18:06 Data reviewed: vital signs. ED course: Patient arrives today for for abdominal pain. ec2 Examination remarkable for abdominal findings as noted above. Will obtain ultrasound and CT imaging. Currently considering process such as cholelithiasis, cholecystitis, pancreatitis. Will treat the patient's pain as well. . 19:19 ED course: Ultrasound shows cholelithiasis, normal CBD at 3 mm, CT imaging shows no ec2 intra-abdominal acute process. . 19:33 ED course: Metabolic profile is reassuring, urine noninfectious appearing, lipase ec2 within normal ranges. . 20:11 ED course: I will admit the patient for pain control, discussed case with the surgeon ec2 who will consult, discussed case with hospitalist will admit. Will keep n.p.o. after midnight.. 05/31 18:06 Order name: CBC with Diff; Complete Time: 19:45 ec2 05/31 18:06 Order name: CMP; Complete Time: 19:33 ec2 05/31 18:06 Order name: Lipase; Complete Time: 19:33 ec2 05/31 18:06 Order name: UAM; Complete Time: 19:33 ec2 05/31 18:06 Order name: Test, Urine; Complete Time: 20:04 ec2 05/31 18:06 Order name: Abdomen Limited US; Complete Time: 19:18 ec2 05/31 18:06 Order name: CT Abd/Pelvis - IV Contrast Only; Complete Time: 19:18 ec2 05/31 20:41 Order name: CONS Physician Consult EDAZ 05/31 18:06 Order name: IV Saline Lock; Complete Time: 19:26 ec2 05/31 18:06 Order name: Labs collected and sent; Complete Time: 19:26 ec2 Administered Medications: 19:25 Drug: NS 0.9% IV 1000 ml IV at 1 bolus Per protocol; 1000 mL bolus Route: IV; Rate: 1 jj7 bolus; Site: left antecubital; 20:30 Follow up: IV Status: Completed infusion jj7 19:25 Drug: Ondansetron IVP 4 mg IVP once; over 2 minutes Route: IVP; Site: left antecubital; jj7 21:25 Follow up: Response: Nausea is decreased jj7 19:25 Drug: morphine IVP or IV 4 mg IVP once over 4 mins Route: IVP; Infused Over: 4 mins; jj7 Site: left antecubital; 21:26 Follow up: Response: Pain is unchanged, physician notified jj7 20:14 Drug: morphine IVP or IV 8 mg IVP once over 4 mins Route: IVP; Infused Over: 4 mins; jj7 Site: left antecubital; 21:25 Follow up: Response: Marked relief of symptoms jj7 Disposition Summary: 05/31/23 20:11 Hospitalization Ordered Notes: Hospitalization Status: Inpatient Admission ec2 Provider: Festus Clinton ec2 Location: Telemetry/MedSur (Inpatient) ec2 Condition: Stable ec2 Problem: an acute exacerbation ec2 Symptoms: have improved ec2 Bed/Room Type: Standard ec2 Room Assignment: 415(05/31/23 20:54) cg Diagnosis - Other cholelithiasis without obstruction ec2 Discharge Instructions: - Discharge Summary Sheet ec2 - Cholelithiasis ec2 Forms: - Medication Reconciliation Form ec2 - SBAR form ec2 - Leadership Thank You Letter ec2 Prescriptions: - acetaminophen-codeine 300-15 mg Oral tablet - take 1 tablet ORAL route every 4 to 6 hours as needed for pain; 15 tablet; ec2 Refills: 0, Product Selection Permitted Signatures: Dispatcher [employer] Blank Pimentel RN RN cg Ally Garcia RN RN ll1 Onur Bangura RN RN jj7 Akira Watkins MD MD ec2 Corrections: (The following items were deleted from the chart) 19:09 19:09 Patient medically screened. ec2 ec2 20:54 20:11 ec2 cg
[2023-05-31] MEDS ORDERED: ACETAMINOPHEN 325 MG TABLET PO PRN (20:36)
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
[2023-05-31] MEDS: NA CHLORIDE 0.9% 1,000 ML IV SCH (21:39)
[2023-05-31] MEDS: MORPHINE 2 MG/ML SYR IV PRN (22:03)
[2023-05-31] MEDS: ONDANSETRON 4 MG/2 ML VIAL IV PRN (22:03)
[2023-05-31 22:16] VITALS: BMI 31.5
[2023-05-31] MEDS: MORPHINE 2 MG/ML SYR IV ONE (22:38)
[2023-06-01] MEDS: ENOXAPARIN 40 MG/0.4 ML SQ SCH (07:36)
--- NOTE | 2023-06-01 08:26 | P.PN ---
Date of Service: 06/01/23 Subjective: reports persistent nausea / abdominal kennedy since this past Sunday. worsened with PO intake Prior to sunday symptoms were occurring more intermittently. reports occasional spotting when wiping after urinating. States regularly gets blood work to monitor. Has urology appointment scheduled coming up +headache afebrile ROS: 10 point ROS as noted above, otherwise negative Physical Exam: GEN: Alert, oriented, NAD HEENT: Normal conjunctiva, sclera anicteric, CV: Regular rate and rhythm, no edema Pulm: Nonlabored respirations on room air, clear bilaterally ABD: soft, RUQ tenderness, nondistended Neuro: Normal speech, normal affect Problem List: Cholelithiasis Persistent nausea / vomiting x5 days h/o recurrent kidney stones ADHD Gout reports persistent nausea / abdominal kennedy since this past Sunday. Prior to sunday symptoms were occurring more intermittently. Nausea / vomiting worsened with PO intake. abdominal u/s (05/31): Suspected cholelithiasis. normal CBD CT abdomen (05/31): No acute intra-abdominal or pelvic finding General surgery - Dr. Okeefe consulted to eval for possible surgical intervention NPO for now until seen by Dr. Okeefe continue IV fluids PRN analgesics / antiemetics LFTs/lipase normal urinalysis unremarkable VTE: Lovenox on hold Code: Full Dispo: Home, 1-2 days
[2023-06-01] MEDS: HYDROMORPHONE HCL 0.5 MG/0.5 ML INJ IV PRN (10:46)
[2023-06-01] MEDS ORDERED: MIDAZOLAM HCL 2 MG/2 ML INJ ONE (13:33)
[2023-06-01] MEDS ORDERED: LIDOCAINE 2% MPF 5 ML VIAL ONE (13:33)
[2023-06-01] MEDS ORDERED: FENTANYL CITR 100 MCG/2 ML ONE ×2 (13:33→14:46)
[2023-06-01] MEDS ORDERED: ROCURONIUM 50 MG/5 ML VIAL IV ONE (13:33)
[2023-06-01] MEDS ORDERED: ONDANSETRON 4 MG/2 ML VIAL ONE (13:33)
[2023-06-01] MEDS ORDERED: propofoL 200 MG/20 ML VIAL IV ONE ×2 (13:33→15:52)
[2023-06-01] MEDS: Ringers Lactate 1,000 ML IV ONE (14:04)
[2023-06-01] MEDS: CEFAZOLIN SODIUM 1 GM/VIAL ONE (14:15)
[2023-06-01] MEDS ORDERED: GLYCOPYRROLATE 0.2 MG/ML SYR ONE (14:58)
--- NOTE | 2023-06-01 15:07 | P.BOP ---
Preoperative diagnosis: acute cholecystitis, symptomatic cholelithiasis Postoperative diagnosis: same Primary procedure: Laparoscopic cholecystectomy Estimated blood loss: <10cc Specimen: gb Findings: as above Anesthesia: General Complications: None Transferred to: Recovery Room Condition: Good
[2023-06-01] MEDS: ONDANSETRON 4 MG/2 ML VIAL ONE (15:30)
[2023-06-01] MEDS: FENTANYL CITR 100 MCG/2 ML ONE (15:35)
[2023-06-01] MEDS: HYDROMORPHONE HCL 1 MG/ML INJ ONE (15:38)
[2023-06-01] MEDS ORDERED: SUCCINYLCHOLINE 20 MG/ML (10 ML) IV ONE (15:40)
[2023-06-01] MEDS: PROMETHAZINE INJ 25 MG/ML AMP ONE (15:46)
--- NOTE | 2023-06-01 16:14 | CON ---
Date of Consultation: 06/01/2023 Reason For Service: Acute abdominal pain, epigastric pain, intractable, acute cholecystitis, symptom atic cholelithiasis. Indication: This is the case of a 38-year-old patient who comes to us with epigastric right upper qu adrant pain radiating to the back, associated with nausea, bloating. It has been on and off for the last several months. Tonight just got to the point that it got worse, so she comes to the ER, diagno sed with acute cholecystitis and symptomatic cholelithiasis and a surgical consult was obtained. Den ies dysuria, hematuria, hematochezia, melena. Denies any recent traveling out of the country. Denie s any family member sick at home. Review of Systems: 10 points otherwise unremarkable. No previous colonoscopies. Allergies: SULFA. Medications: Include Reglan. Past Medical History: ADD, cholelithiasis. Social History: She does not smoke. She does not drink alcohol. Physical Examination: General: The patient is awake, alert. HEENT: Pupils are equal and reactive. Anicteric. Neck: Supple. Chest: Clear. Heart: S1, S2. Abdomen: Epigastric right upper quadrant pain, Hilario sign positive. Rest of the abdomen is soft an d depressible. Breasts, Pelvic, Rectal: Deferred. Extremities: Good capillary refill. Laboratory Data: Blood work shows WBC count of 8.10 with hemoglobin of 12.5, platelets of 261. BUN is 12. Total bilirubin of 0.4, lipase is 35. Abdominal ultrasound and CAT scan by Dr. Brady shows ch olelithiasis. Assessment: This is a 38-year-old patient with acute abdominal pain, acute cholecystitis, symptomati c cholelithiasis. Laparoscopic versus open cholecystectomy. Plan is fully explained to the patient which include, but not limited to infection, bleeding, damage to adjacent structures, anesthesia comp lication, cholelithiasis, bile leak, pancreatitis, [place], even . She also understands this may not relieve her symptoms. She might need more than one surgical intervention. She was booked in OR. SERGEY/MODL Voice ID: [id number] Report ID: [id number]
[2023-06-01 16:15] VITALS: O2SAT 95
[2023-06-01] MEDS: HYDROCODONE/APAP 5/325 MG TAB PO PRN (20:17)
[2023-06-01] MEDS ORDERED: HYOSCYAMINE SULF 0.125 MG TAB PO PRN (20:27)
[2023-06-01] MEDS: HYDROXYCHLOROQUINE 200MG TAB PO SCH (21:00)
--- NOTE | 2023-06-01 21:14 | OP ---
Date of Procedure: 06/01/2023 Surgeon: Vlad Okeefe MD Preoperative Diagnoses: Acute cholecystitis, symptomatic cholelithiasis. Postoperative Diagnoses: Acute cholecystitis, symptomatic cholelithiasis. Procedure: Laparoscopic cholecystectomy. Estimated Blood Loss: Less than 10 mL. Specimen: Gallbladder. Anesthesia: General plus local. Complications: None. Indications: This is a case of a 38-year-old patient who comes to us with above diagnoses. Fully ex plained the benefits, alternatives, and risks of laparoscopic possible open cholecystectomy which inc lude, but not limited to infection, bleeding, damage to adjacent structures, anesthesia complication, choledocholithiasis, bile leak, pancreatitis, MA, and . She also understands this may not reli marco the symptoms. She might need more than one surgical intervention. She understood, signed a cons ent. Description Of Procedure: The patient was brought to the operating room, placed in supine position. Anesthesia was done without complication. Abdominal area was prepped and draped in the usual steril e fashion. Marcaine 0.5% was injected for local anesthetic, followed by sharp incision of the skin i n the infraumbilical region. Incision was carried down to fascia, which was opened under direct visi on. Peritoneum was encountered, opened under direct vision. Vicryl #1 was placed inside the fascia. Andre trocar was carefully introduced. No bleeding was obtained. I placed 3 more trocars, 5 mm e ach one of them, 1 in epigastric area, 2 in the right upper quadrant using same technique, which cons isted of local anesthetic. Sharp incision of the skin, introduction of the trocars under direct visi on. This allowed me to put a grasper in the fundus of the gallbladder, another grasper in the infund ibulum, retracted the gallbladder in the inferolateral fashion, exposing the triangle of Calot, obtai sissy critical view. The cystic duct and cystic artery were clearly identified circumferentially and a connection between those and the gallbladder were clearly identified. I proceeded to ligate those by using at least 3 clips proximal, 1 clip distal, ligation in middle. Same was done with the cystic artery. No bile leak, no bleeding. The gallbladder was removed from liver using Bovie cauterizer a nd removed from abdominal cavity using EndoCatch through umbilical incision. After that, we inspecte d the area once again. No bile leak. No bleeding. Clips were intact. I proceeded to remove the tr ocars under direct vision, deflated pneumoperitoneum, closed the fascia with #1 Vicryl, irrigated sub cutaneous tissue, closed that with 3-0 chromic and skin with 3-0 chromic in a subcuticular fashion an d Steri-Strips on top. Sponge count, instrument counts were correct. The patient tolerated the proc edure well. The patient on her way to Recovery in stable condition. SERGEY/DANIELA Voice ID: [id number] Report ID: [id number]
[2023-06-01] MEDS: ATORVASTATIN 20 MG TAB PO SCH (21:45)
[2023-06-01] MEDS: PROPRANOLOL HCL 40 MG TAB PO SCH (21:45)
--- NOTE | 2023-06-02 08:53 | P.PN ---
Date of Service: 06/02/23 Subjective: s/p lap tanna yesterday with Dr. Okeefe passing gas, no trouble urinating abdominal pain continues, will increase pain regimen nausea significantly improved per patient. afebrile ROS: 10 point ROS as noted above, otherwise negative Physical Exam: GEN: Alert, oriented, NAD HEENT: Normal conjunctiva, sclera anicteric, CV: Regular rate and rhythm, no edema Pulm: Nonlabored respirations on room air, clear bilaterally ABD: soft, RUQ tenderness, nondistended Neuro: Normal speech, normal affect Problem List: Acute cholecystitis / symptomatic Cholelithiasis, now s/p laparoscopic cholecystectomy (06/01) Persistent nausea / vomiting x5 days, improving h/o recurrent kidney stones ADHD Gout reports persistent nausea / abdominal kennedy since this past Sunday. Prior to Sunday symptoms were occurring more intermittently. Nausea / vomiting worsened with PO intake. abdominal u/s (05/31): Suspected cholelithiasis. normal CBD CT abdomen (05/31): No acute intra-abdominal or pelvic finding General surgery - Dr. Okeefe consulted s/p cj tanna (06/01) with Dr. Okeefe serial abdominal exams Diet per surgery dc IV fluids today PRN analgesics / antiemetics [place] increased 06/02 VTE: SCD Code: Full Dispo: Home, ~anticipate later today vs tomorrow am pending better pain control
[2023-06-02] MEDS: METHSCOPOLAMINE BROMIDE 5 MG PO SCH (09:00)
[2023-06-02] MEDS: SERTRALINE HCL 50 MG TAB PO SCH (09:18)
[2023-06-02] MEDS: MULTIVITAMINS,THERAPEUT 1 TAB PO SCH (09:18)
[2023-06-02] MEDS: allopurinoL 300 MG TAB PO SCH (09:19)
[2023-06-02 09:39] LABS: Absolute Lymphocytes (CBC) 1.2 K/uL (0.7-4.9); Hematocrit 31.4 % (36.0-45.0); MCV 90.5 fL (80-100); MPV 6.9 fL (7.6-11.3); Platelets 224 thou/uL (152-406); RBC Red Blood Cell Count 3.47 M/uL (3.86-4.86)
[2023-06-02 10:06] LABS: Potassium 3.4 mEq/L (3.5-5.1)
[2023-06-02] MEDS: HYDROCODONE/APAP 7.5/325 MG TAB PO PRN (13:41)
[2023-06-02 16:19] VITALS: BP 121/71; TEMP 97.8
--- NOTE | 2023-06-02 16:58 | P.DS ---
Admission Date: 05/31/23 Discharge Date: 06/02/23 Disposition: DC HOME/HOME HEALTH CARE Discharge Condition: GOOD Reason for Admission: Abdominal pain, cholelithiasis. Consultations: General surgery - Dr. Okeefe Brief History of Present Illness: 38 yo F, PMH: ADHD Patient was evaluated for episode of persistent abdominal pain. She had persistent abdominal pain for a couple of weeks associated with worsening episode while eating. She came to the ED for evaluation in ED she had imaging studies that revealed gallstones with significant dilatation of common bile duct. No transaminitis reported on labs. Patient was admitted for inpatient care and for general surgery evaluation for possible surgical intervention. Hospital Course: Problem List: Acute cholecystitis / symptomatic Cholelithiasis, now s/p laparoscopic cholecystectomy (06/01) Persistent nausea / vomiting x5 days, improving h/o recurrent kidney stones ADHD Gout Patient presented with RUQ abdominal pain, persistent nausea/vomiting x5 days. Abdominal ultrasound noted suspected cholelithiasis and normal sized caliber common bile duct. CT abdomen / pelvis without intra-abdominal or pelvic finding. General surgery - Dr. Okeefe was consulted to eval for possible surgical intervention. Given patient's symptomatic cholelithiasis, Dr. Okeefe elected to take patient to the OR on 06/01 for laparoscopic cholecystectomy. Patient was monitored post operatively and continued to improve with time. Patient was feeling better, nausea/vomiting improved, abdominal pain tolerable, and was deemed stable for discharge home. She remained afebrile and without leukocytosis during hospitalization. She received perioperative antibiotics and Dr. Okeefe recommended 5 more days of antibiotics - augmentin Medications: [place] as needed for pain Augmentin for 5 days can take over the counter docusate for stool softener while on pain medication continue other home meds as previously prescribed Follow up: PCP 3-[address] Okeefe in ~1 week Physical Exam: GEN: Alert, oriented, NAD HEENT: Normal conjunctiva, sclera anicteric, CV: Regular rate and rhythm, no edema Pulm: Nonlabored respirations on room air, clear bilaterally ABD: soft, nontender, nondistended, dressing in place c/d/i Neuro: Normal speech, normal affect Vital Signs/Physical Exam: Temp Pulse Resp BP Pulse Ox 97.8 F 89 16 121/71 98 06/02/23 16:00 06/02/23 16:00 06/02/23 16:00 06/02/23 16:00 06/02/23 16:00 Laboratory Data at Discharge: WBC 10.40 thou/uL (4.3-10.9) 06/02/23 09:07 Hgb 10.9 g/dL (12.0-15.0) L 06/02/23 09:07 Hct 31.4 % (36.0-45.0) L 06/02/23 09:07 Plt Count 224 thou/uL (152-406) 06/02/23 09:07 Sodium 137 mEq/L (136-145) 06/02/23 09:07 Potassium 3.4 mEq/L (3.5-5.1) L 06/02/23 09:07 BUN 6 mg/dL (7-18) L 06/02/23 09:07 Creatinine 0.77 mg/dL (0.55-1.02) 06/02/23 09:07 Glucose 126 mg/dL (74-106) H 06/02/23 09:07 Magnesium 2.0 mg/dL (1.6-2.4) 06/02/23 09:07 Total Bilirubin 0.4 mg/dL (0.2-1.0) 05/31/23 18:58 AST 15 U/L (15-37) 05/31/23 18:58 ALT 28 U/L (13-56) 05/31/23 18:58 Alkaline Phosphatase 57 U/L (45-117) 05/31/23 18:58 Lipase 35 U/L (13-75) 05/31/23 18:58 Home Medications: Multivitamin with Iron [Daily Multivitamin with Iron] 1 each PO DAILY #90 tablet 12/13/16 Allopurinol 300 mg PO DAILY 06/01/23 Atorvastatin Calcium [Lipitor*] 20 mg PO BEDTIME 06/01/23 Duloxetine HCl 60 mg PO BID 06/01/23 Hydroxychloroquine [Plaquenil*] 1 tab PO BID 06/01/23 Hyoscyamine Sulfate [Levsin TAB*] 0.125 mg PO Q4HP PRN 06/01/23 Methscopolamine [place] 5 mg PO DAILY 06/01/23 Propranolol HCl 20 mg PO BID 06/01/23 Sertraline [Zoloft*] 50 mg PO DAILY 06/01/23 Amox/Clavulanate [Augmentin 875-125 Tab] 1 tab PO BID 5 Days #10 tab 06/02/23 Hydrocodone 7.5/APAP 325 [[place] 7.5/325 mg*] 1 tab PO Q6H PRN #15 tab 06/02/23 New Medications: Amox/Clavulanate [Augmentin 875-125 Tab] 1 tab PO BID 5 Days #10 tab Hydrocodone 7.5/APAP 325 [[place] 7.5/325 mg*] 1 tab PO Q6H PRN #15 tab PRN Reason: Pain Scale 5-7 (Moderate) Physician Discharge Instructions: Patient presented with RUQ abdominal pain, persistent nausea/vomiting x5 days. Abdominal ultrasound noted suspected cholelithiasis and normal sized caliber common bile duct. CT abdomen / pelvis without intra-abdominal or pelvic finding. General surgery - Dr. Okeefe was consulted to eval for possible surgical intervention. Given patient's symptomatic cholelithiasis, Dr. Okeefe elected to take patient to the OR on 06/01 for laparoscopic cholecystectomy. Patient was monitored post operatively and continued to improve with time. Patient was feeling better, nausea/vomiting improved, abdominal pain tolerable, and was deemed stable for discharge home. She remained afebrile and without leukocytosis during hospitalization. She received perioperative antibiotics and Dr. Okeefe recommended 5 more days of antibiotics - augmentin Medications: [place] as needed for pain Augmentin for 5 days can take over the counter docusate for stool softener while on pain medication continue other home meds as previously prescribed Follow up: PCP 3-[address] Okeefe in ~1 week Followup: BHARATH DIOR [Primary Care Provider] - Time spent managing pt's care (in minutes): 45
[2023-06-02] MEDS: HYDROCODONE/APAP 7.5/325 MG TAB PO ONE (17:51)
== END 2023-06-02 18:02 | disposition home health service (06) ==
LOC: ER 17:47 → ERHOLD 20:36 → 4TH 21:00 → INTOOBSV 06-02 14:52 → OBSVTOIN 06-02 14:52
PROVIDERS: ADMIT Internal Medicine Nephrology; ATTEND Hospitalist
PROC: 0FT44ZZ Resection of Gallbladder, Percutaneous Endoscopic Approach (ICD-10-PCS; principal; 2023-06-01 15:00)
DX: K80.00 Calculus of gallbladder with acute cholecystitis without obstruction (principal); F90.9 Attention-deficit hyperactivity disorder, unspecified type; M10.9 Gout, unspecified; R11.2 Nausea with vomiting, unspecified
CPT/HCPCS: 96361; 85025 ×2; 81001; 80048; 36415 ×2; 83735; 81025; 83690; 80053; 74177; 76705; 94010 ×2; 96375; 96374; 99285; 47562; Q9967; J2550; J2704; J2001; J2250; J3010 ×3; J2270 ×4; J1170 ×6; J2405 ×8; J7120; J7030 ×5; J0690

== ENCOUNTER → 2023-07-09 | Emergency (ER) | payer OTHER ==
[~2023-07-09] MED LIST changes: -MORPHINE 2 MG/ML SYR ONE; -MORPHINE 4 MG/ML SYR ONE
[2023-07-09 15:50] LABS: Absolute Basophils 0.1 K/uL (0-0.5); Absolute Eosinophils 0.2 K/uL (0-0.5); Absolute Lymphocytes (CBC) 1.8 K/uL (0.7-4.9); Absolute Monocytes 0.6 K/uL (0.1-1.3); Absolute Neutrophil 3.7 K/uL (1.8-8.0); Basophils % 1.1 % (0-1.3); Eosinophils % 3.9 % (0-4.4); Hematocrit 35.8 % (36.0-45.0); Lymphocytes % 28.1 % (15.3-44.8); MCH 30.4 pg (27.0-35.0); MCHC 33.4 g/dL (32.0-36.0); MCV 90.9 fL (80-100); Monocytes % 9.3 % (3.3-12.3); Neutrophils % 57.6 % (41.7-73.7); Platelets 242 thou/uL (152-406); RBC Red Blood Cell Count 3.94 M/uL (3.86-4.86); Red Cell Distribution Width 15.4 % (12.1-15.2)
[2023-07-09 16:07] LABS: Albumin 3.7 g/dL (3.4-5.0); Albumin/Globulin Ratio 1.2 (1.1-1.8); Anion Gap 7.1 mEq/L (5.0-15.0); Bilirubin Total 0.2 mg/dL (0.2-1.0); Potassium 4.1 mEq/L (3.5-5.1); Protein, Total 6.7 g/dL (6.4-8.2)
[2023-07-09 16:44] LABS: Specific Gravity 1.011 (1.005-1.030)
[2023-07-09 16:45] LABS: Specific Gravity 1.011 (1.005-1.030); Sqamous Epithelial <5 /HPF (None Seen); Urine Bacteria <20 /HPF (<20); Urine Bilirubin NEGATIVE (Negative); Urine Blood 3+ (Negative); Urine Clarity Clear (Clear); Urine Color Light-Yellow (Yellow); Urine Culture Reflex Order NOT NEEDED; Urine Glucose NEGATIVE (Negative); Urine Ketones NEGATIVE (Negative); Urine Microscopic Reflex YN ORDER UMIC; Urine Mucus Slight /HPF (None Seen); Urine Nitrite NEGATIVE (Negative); Urine Protein NEGATIVE (Negative); Urine RBC 21-50 /HPF (None Seen); Urine Urobilinogen Normal (Normal); Urine WBC <5 /HPF (<5); Urine pH 6.5 (5.0-7.0)
--- NOTE | 2023-07-09 17:44 | RAD REPORT ---
EXAM DESCRIPTION: CT - Abdomen Pelvis W Contrast - 07/09/2023 5:15 pm CLINICAL HISTORY: Abdominal pain COMPARISON: May 2023 TECHNIQUE: Computed axial tomography of the abdomen pelvis was obtained. 100 cc Isovue-300 was admin istered intravenously. Oral contrast was not requested which limits evaluation of bowel and appendix All CT scans are performed using dose optimization technique as appropriate and may include automated exposure control or mA/KV adjustment according to patient size. FINDINGS: The liver, spleen, pancreas, adrenal and kidneys appear unremarkable. Cholecystectomy. Tiny umbilical hernia There is no evidence of diverticulitis. Normal appendix 4.8 centimeter left ovarian simple cyst without significant free fluid. No followup imaging recommend ed IMPRESSION: 4.8 centimeter left ovarian cyst without significant free fluid
--- NOTE | 2023-07-09 17:54 | ER ---
Nurse's Notes [facility] Name: Tiana Kincaid Age: 38 yrs Sex: Female : 1985 Arrival Date: 07/09/2023 Time: 14:58 Bed 12 Private MD: Diagnosis: Lower abdominal pain, unspecified Presentation: 07/08 15:05 Chief complaint: Patient states: "I started having lower stomach pains this morning, mb9 nausea, and bloating. I had a fever this morning and took Ibuprofen 1 hr ago.". Coronavirus screen: Vaccine status: Patient reports receiving the 2nd dose of the covid vaccine. Ebola Screen: No symptoms or risks identified at this time. Initial Sepsis Screen: Does the patient meet any 2 criteria? No. Patient's initial sepsis screen is negative. Does the patient have a suspected source of infection? No. Patient's initial sepsis screen is negative. Risk Assessment: Do you want to hurt yourself or someone else? Patient reports no desire to harm self or others. Onset of symptoms was July 09, 2023. 15:05 Method Of Arrival: Ambulatory mb9 15:05 Acuity: DENISE 3 mb9 Triage Assessment: 15:07 General: Appears uncomfortable, Behavior is calm, cooperative. Pain: Complains of pain mb9 in abdomen. Neuro: Level of Consciousness is awake, alert, obeys commands, Oriented to person, place, time, situation, Appropriate for age. Cardiovascular: Patient's skin is warm and dry. Respiratory: Airway is patent Respiratory effort is even, unlabored, Respiratory pattern is regular, symmetrical. GI: Abdomen is round non-distended, Reports lower abdominal pain, nausea. : No signs and/or symptoms were reported regarding the genitourinary system. Derm: Skin is pink, warm \\T\\ dry. Musculoskeletal: Range of motion: intact in all extremities. 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: 16:20 LMP 07/09/2023, unknown tl4 Historical: - Allergies: 15:05 Reglan; mb9 15:05 sulfamethoxazole-trimethoprim; mb9 - Home Meds: 17:13 pilocarpine HCl 1 % Opht drop 1 drop every 4 hours [Active]; tl4 17:06 hydroxychloroquine 200 mg oral tablet 1 tab 2 times per day [Active]; propranolol 20 mg tl4 oral tablet 1 tab 2 times per day [Active]; sertraline 50 mg Oral tab 1 tab once daily [Active]; duloxetine 60 mg Oral CDRS 1 cap 2 times per day [Active]; hyoscyamine sulfate 0.125 mg SL subl 1 tabs as needed [Active]; Zofran Oral 8 mg daily [Active]; Robaxin Oral 750 mg nightly [Active]; atorvastatin oral daily [Active]; Allopurinol Oral [Active]; - PMHx: 15:05 ADD/ADHD; Unspecified Auto Immune; Narayan; Arthritis; mb9 17:13 Gallstones; tl4 - PSHx: 15:05 Cholecystectomy; mb9 - Immunization history:: Adult Immunizations up to date. - Social history:: Smoking status: Patient denies any tobacco usage or history of. Screenin:18 [facility] ED Fall Risk Assessment (Adult) History of falling in the last 3 months, tl4 including since admission No falls in past 3 months (0 pts) Confusion or Disorientation No (0 pts) Intoxicated or Sedated No (0 pts) Impaired Gait No (0 pts) Mobility Assist Device Used No (0 pt) Altered Elimination No (0 pt) Score/Fall Risk Level 0 - 2 = Low Risk Oriented to surroundings, Maintained a safe environment, Educated pt \\T\\ family on fall prevention, incl call for assistance when getting out of bed, Assessed \\T\\ reinforced patient's understanding of fall precautions, Hourly rounding (assess needs \\T\\ fall precautionary measures) done, Used ambulatory aids as needed (educated on \\T\\ assisted with), Used gait belt as appropriate. Abuse screen: Denies threats or abuse. Denies injuries from another. Nutritional screening: No deficits noted. Tuberculosis screening: No symptoms or risk factors identified. Assessment: 16:17 General: Appears uncomfortable, Behavior is calm, cooperative. Pain: Complains of pain tl4 in abdomen. Neuro: Level of Consciousness is awake, alert, obeys commands, Oriented to person, place, time, situation, Moves all extremities. Gait is steady, Speech is normal, Facial symmetry appears normal. Cardiovascular: Denies chest pain, palpitations, syncope, Capillary refill < 3 seconds Patient's skin is warm and dry. Respiratory: Airway is patent Respiratory effort is even, unlabored, Respiratory pattern is regular, symmetrical, Breath sounds are clear bilaterally. GI: Bowel sounds present X 4 quads. Abd is soft X 4 quads Abdomen is tender to palpation in right lower quadrant and left lower quadrant Reports lower abdominal pain. : No deficits noted. No signs and/or symptoms were reported regarding the genitourinary system. EENT: No deficits noted. No signs and/or symptoms were reported regarding the EENT system. Derm: No deficits noted. No signs and/or symptoms reported regarding the dermatologic system. Musculoskeletal: No deficits noted. No signs and/or symptoms reported regarding the musculoskeletal system. 17:03 Reassessment: No changes from previously documented assessment. Patient and/or family tl4 updated on plan of care and expected duration. Pain level reassessed. Patient is alert, oriented x 3, equal unlabored respirations, skin warm/dry/pink. Provider Azalea aware, medications ordered and given. Will continue to monitor Patient states symptoms have not improved. 18:31 Reassessment: No changes from previously documented assessment. Patient and/or family tl4 updated on plan of care and expected duration. Pain level reassessed. Patient is alert, oriented x 3, equal unlabored respirations, skin warm/dry/pink. Vital Signs: 15:05 BP 102 / 77; Pulse 86; Resp 18; Temp 98.4(O); Pulse Ox 100% on R/A; Weight 81.65 kg; mb9 Height 5 ft. 3 in. ; Pain 10/10; 16:17 BP 119 / 76; Pulse 74; Resp 18; Pulse Ox 99% on R/A; Pain 10/10; tl4 17:04 BP 113 / 79; Pulse 72; Resp 20; Pulse Ox 100% on R/A; Pain 8/10; tl4 18:31 BP 112 / 74; Pulse 76; Resp 18; Pulse Ox 100% on R/A; Pain 8/10; tl4 15:05 Body Mass Index 31.89 (81.65 kg, 160.02 cm) mb9 15:05 Pain Scale: Adult mb9 16:17 Pain Scale: Adult tl4 17:04 Pain Scale: Adult tl4 18:31 Pain Scale: Adult tl4 ED Course: 15:00 Patient arrived in ED. mg5 15:01 Azalea Fonseca FNP-C is PHCP. roddy 15:01 Roger Hopkins DO is Attending Physician. kb 15:05 Arm band placed on. mb9 15:07 Triage completed. mb9 15:27 Calos Pierre, RN is Primary Nurse. tl4 15:43 CBC with Diff Sent. tl4 15:43 CMP Sent. tl4 15:43 Lipase Sent. tl4 15:44 Initial lab(s) drawn, by me, sent to lab. Inserted saline lock: 22 gauge in right tl4 antecubital area, using aseptic technique. Blood collected. 16:19 Patient has correct armband on for positive identification. Placed in gown. Bed in low tl4 position. Call light in reach. Side rails up X2. Provided Education on: ED process. Client placed on continuous cardiac and pulse oximetry monitoring. NIBP monitoring applied. Door closed. Noise minimized. Lights dimmed. Moved to private room. Warm blanket given. 16:19 No provider procedures requiring assistance completed. tl4 17:16 CT Abd/Pelvis - IV Contrast Only In Process Unspecified. EDMS 18:31 IV discontinued, intact, bleeding controlled, No redness/swelling at site. Pressure tl4 dressing applied. Administered Medications: 15:54 Drug: NS 0.9% IV 1000 ml IV at 1 bolus Per protocol; 1000 mL bolus Route: IV; Rate: 1 tl4 bolus; Site: right antecubital; Delivery: Primary tubing; 18:33 Follow up: Response: No adverse reaction; IV Status: Completed infusion; IV Intake: tl4 1000ml 15:54 Drug: TORadol - Ketorolac IVP 15 mg IVP once Route: IVP; Site: right antecubital; tl4 16:55 Follow up: Response: No adverse reaction; Pain is unchanged, physician notified tl4 15:54 Drug: Ondansetron IVP 4 mg IVP once; over 2 minutes Route: IVP; Site: right antecubital;tl4 16:55 Follow up: Response: No adverse reaction; Nausea unchanged tl4 16:55 Drug: fentaNYL (PF) IVP 25 mcg IVP once Route: IVP; Site: right antecubital; tl4 18:33 Follow up: Response: No adverse reaction tl4 Medication: 16:20 VIS not applicable for this client. tl4 Intake: 18:33 IV: 1000ml; Total: 1000ml. tl4 Outcome: 17:53 Discharge ordered by . roddy 18:31 Discharged to home ambulatory, tl4 18:31 Condition: stable 18:31 Discharge instructions given to patient, Instructed on discharge instructions, follow up and referral plans. medication usage, Demonstrated understanding of instructions, follow-up care, medications, 18:32 Patient left the ED. tl4 Signatures: Dispatcher [employer] EDNJ Azalea Fonseca, CHLOÉ SULLIVAN-Jia Kwok RN RN mb9 Ambreen Couch mg5 Calos Pierre RN RN tl4 Corrections: (The following items were deleted from the chart) 17:15 15:05 PMHx: GALLSTONES (Unspecified Auto Im); mb9 tl4 17:15 17:06 Home Meds: pilocarpine HCl 1 % Opht drop 1 drop every 4 hours; tl4 tl4 17:15 17:06 Home Meds: duloxetine 60 mg Oral CDRS 1 cap 2 times per day; tl4 tl4 17:15 17:06 Home Meds: duloxetine 60 mg Oral CDRS 1 cap once daily; tl4 tl4
--- NOTE | 2023-07-09 17:54 | EDPHYS ---
[facility] Name: Tiana Kincaid Age: 38 yrs Sex: Female : 1985 Arrival Date: 07/09/2023 Time: 14:58 Bed 12 Private MD: ED Physician Roger Hopkins HPI: 07/08 15:18 This 38 yrs old Female presents to ER via Ambulatory with complaints of Fever, kb Abdominal Pain. 15:18 Pt is a 38 year old female who presents for abd pain that has been ongoing for a long kb time, but became worse in RLQ with fever and nausea yesterday. States she has a colonoscopy and endoscopy scheduled and recently had a cholecystectomy, but the pain isn't any better. . 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: 16:20 LMP 07/09/2023, unknown tl4 Historical: - Allergies: 15:05 Reglan; mb9 15:05 sulfamethoxazole-trimethoprim; mb9 - Home Meds: 17:13 pilocarpine HCl 1 % Opht drop 1 drop every 4 hours [Active]; tl4 17:06 hydroxychloroquine 200 mg oral tablet 1 tab 2 times per day [Active]; propranolol 20 mg tl4 oral tablet 1 tab 2 times per day [Active]; sertraline 50 mg Oral tab 1 tab once daily [Active]; duloxetine 60 mg Oral CDRS 1 cap 2 times per day [Active]; hyoscyamine sulfate 0.125 mg SL subl 1 tabs as needed [Active]; Zofran Oral 8 mg daily [Active]; Robaxin Oral 750 mg nightly [Active]; atorvastatin oral daily [Active]; Allopurinol Oral [Active]; - PMHx: 15:05 ADD/ADHD; Unspecified Auto Immune; Narayan; Arthritis; mb9 17:13 Gallstones; tl4 - PSHx: 15:05 Cholecystectomy; mb9 - Immunization history:: Adult Immunizations up to date. - Social history:: Smoking status: Patient denies any tobacco usage or history of. ROS: 15:18 Constitutional: As per HPI kb Exam: 15:18 Constitutional: This is a well developed, well nourished patient who is awake, alert, kb and in no acute distress. Head/Face: Normocephalic, atraumatic. ENT: Moist Mucous membranes Cardiovascular: Regular rate Respiratory: Respirations even and unlabored. No increased work of breathing. Talking in full sentences Skin: Warm, dry with normal turgor. Normal color. MS/ Extremity: Pulses equal, no cyanosis. Neurovascular intact. Full, normal range of motion. Neuro: Awake and alert, GCS 15, oriented to person, place, time, and situation. Moves all extremities. Normal gait. 15:18 Abdomen/GI: Inspection: scar(s), Bowel sounds: normal, Palpation: soft, in all quadrants, mild abdominal tenderness, in the right upper quadrant, left upper quadrant and left lower quadrant, moderate abdominal tenderness, in the right lower quadrant, Vital Signs: 15:05 BP 102 / 77; Pulse 86; Resp 18; Temp 98.4(O); Pulse Ox 100% on R/A; Weight 81.65 kg; mb9 Height 5 ft. 3 in. ; Pain 10/10; 16:17 BP 119 / 76; Pulse 74; Resp 18; Pulse Ox 99% on R/A; Pain 10/10; tl4 17:04 BP 113 / 79; Pulse 72; Resp 20; Pulse Ox 100% on R/A; Pain 8/10; tl4 18:31 BP 112 / 74; Pulse 76; Resp 18; Pulse Ox 100% on R/A; Pain 8/10; tl4 15:05 Body Mass Index 31.89 (81.65 kg, 160.02 cm) mb9 15:05 Pain Scale: Adult mb9 16:17 Pain Scale: Adult tl4 17:04 Pain Scale: Adult tl4 18:31 Pain Scale: Adult tl4 MDM: 15:01 Patient medically screened. kb 15:22 Data reviewed: vital signs, nurses notes. kb 17:52 Differential diagnosis: appendicitis, chronic abd pain, ovarian cyst. Counseling: I had kb a detailed discussion with the patient and/or guardian regarding the historical points, exam findings, and any diagnostic results supporting the discharge/admit diagnosis, lab results, radiology results, the need for outpatient follow up, a concierge receptionist, to return to the emergency department if symptoms worsen or persist or if there are any questions or concerns that arise at home. 07/08 15:12 Order name: CBC with Diff; Complete Time: 16:02 kb 07/08 15:12 Order name: CMP; Complete Time: 16:09 kb 07/08 15:12 Order name: Lipase; Complete Time: 16:09 kb 07/08 15:12 Order name: Test, Urine; Complete Time: 16:46 kb 07/08 15:12 Order name: Urinalysis w/ reflexes; Complete Time: 16:46 kb 07/08 15:12 Order name: CT Abd/Pelvis - IV Contrast Only; Complete Time: 17:46 kb 07/08 15:12 Order name: IV Saline Lock; Complete Time: 15:43 kb 07/08 15:12 Order name: Labs collected and sent; Complete Time: 15:43 kb Administered Medications: 15:54 Drug: NS 0.9% IV 1000 ml IV at 1 bolus Per protocol; 1000 mL bolus Route: IV; Rate: 1 tl4 bolus; Site: right antecubital; Delivery: Primary tubing; 18:33 Follow up: Response: No adverse reaction; IV Status: Completed infusion; IV Intake: tl4 1000ml 15:54 Drug: TORadol - Ketorolac IVP 15 mg IVP once Route: IVP; Site: right antecubital; tl4 16:55 Follow up: Response: No adverse reaction; Pain is unchanged, physician notified tl4 15:54 Drug: Ondansetron IVP 4 mg IVP once; over 2 minutes Route: IVP; Site: right antecubital;tl4 16:55 Follow up: Response: No adverse reaction; Nausea unchanged tl4 16:55 Drug: fentaNYL (PF) IVP 25 mcg IVP once Route: IVP; Site: right antecubital; tl4 18:33 Follow up: Response: No adverse reaction tl4 Disposition: 17:12 I was immediately available on-site in the Emergency Department for consultation in the ms3 care of the patient. Disposition Summary: 07/09/23 17:53 Discharge Ordered Notes: Location: Home kb Condition: Stable kb Diagnosis - Lower abdominal pain, unspecified kb Followup: kb - With: Emergency Department - When: As needed - Reason: Worsening of condition Followup: kb - With: Private Physician - When: 2 - 3 days - Reason: Recheck today's complaints, Continuance of care, Re-evaluation by your physician Discharge Instructions: - Discharge Summary Sheet kb - Abdominal Pain, Adult, [id number] kb Forms: - Medication Reconciliation Form kb - Thank You Letter kb - Antibiotic Education kb - Prescription Opioid Use kb - Patient Portal Instructions kb - Leadership Thank You Letter kb Signatures: Dispatcher [employer] EDAzalea Frausto, CHLOÉ SULLIVAN-Roger Pal DO DO ms3 Jia Chi RN RN mb9 Calos Pierre RN RN tl4 Corrections: (The following items were deleted from the chart) 17:15 15:05 PMHx: GALLSTONES (Unspecified Auto Im); kim9 tl4 17:15 17:06 Home Meds: pilocarpine HCl 1 % Opht drop 1 drop every 4 hours; tl4 tl4 17:15 17:06 Home Meds: duloxetine 60 mg Oral CDRS 1 cap 2 times per day; tl4 tl4 17:15 17:06 Home Meds: duloxetine 60 mg Oral CDRS 1 cap once daily; tl4 tl4
== END ==
LOC: ER 14:58
DX: R10.31 Right lower quadrant pain (principal)
CPT/HCPCS: 85025; 81001; 36415; 81025; 83690; 80053; 74177; Q9967; J3010; J2405 ×2; J7030

== ENCOUNTER 2023-09-28 17:55 | Emergency (ER) | payer OTHER ==
--- NOTE | 2023-09-28 18:43 | RAD REPORT ---
EXAM DESCRIPTION: RAD - Chest Single View - 09/28/2023 6:25 pm CLINICAL HISTORY: Cough;Congestion;Chest pain Chest pain. COMPARISON: Chest Single View dated 09/04/2020; Chest Pa And Lat (2 Views) dated 12/12/2016; Chest Sin gle View dated 12/11/2016 FINDINGS: Portable technique limits examination quality. The lungs are grossly clear. The heart is normal in size. No displaced fractures. Cervical hardware p late. IMPRESSION: No acute intrathoracic process suspected.
[2023-09-28] MEDS ORDERED: NA CHLORIDE 0.9% 1,000 ML ONE (19:18)
[2023-09-28 19:19] LABS: Absolute Basophils 0.1 K/uL (0-0.5); Absolute Eosinophils 0.6 K/uL (0-0.5); Absolute Lymphocytes (CBC) 2.2 K/uL (0.7-4.9); Absolute Monocytes 0.6 K/uL (0.1-1.3); Absolute Neutrophil 5.2 K/uL (1.8-8.0); Eosinophils % 6.4 % (0-4.4); Hematocrit 38.2 % (36.0-45.0); Hemoglobin 12.8 g/dL (12.0-15.0); Lymphocytes % 25.8 % (15.3-44.8); MCH 30.7 pg (27.0-35.0); MCHC 33.4 g/dL (32.0-36.0); MCV 91.8 fL (80-100); MPV 6.7 fL (7.6-11.3); Neutrophils % 59.8 % (41.7-73.7); Nucleated Red Blood Cells % 0.3 % (0-0); Platelets 301 thou/uL (152-406); RBC Red Blood Cell Count 4.16 M/uL (3.86-4.86); Red Cell Distribution Width 14.9 % (12.1-15.2)
[2023-09-28 19:22] LABS: Specific Gravity 1.014 (1.005-1.030); Sqamous Epithelial <5 /HPF (None Seen); Urine Bacteria None Seen /HPF (<20); Urine Bilirubin NEGATIVE (Negative); Urine Blood Trace (Negative); Urine Clarity Clear (Clear); Urine Color Light-Yellow (Yellow); Urine Culture Reflex Order NOT NEEDED; Urine Glucose NEGATIVE (Negative); Urine Ketones NEGATIVE (Negative); Urine Microscopic Reflex YN ORDER UMIC; Urine Nitrite NEGATIVE (Negative); Urine Protein NEGATIVE (Negative); Urine Urobilinogen Normal (Normal); Urine WBC <5 /HPF (<5); Urine pH 7.5 (5.0-7.0)
[2023-09-28 19:24] LABS: PT Prothrombin Time 10.2 SECONDS (9.5-12.5); PTT, Activated Partial Thromb 30.1 SECONDS (24.3-36.9); Protime INR 0.93
[2023-09-28] MEDS ORDERED: KETOROLAC 30 MG/ML INJ ONE (19:24)
[2023-09-28 19:32] LABS: Albumin 3.7 g/dL (3.4-5.0); Albumin/Globulin Ratio 1.1 (1.1-1.8); Anion Gap 6.9 mEq/L (5.0-15.0); Bilirubin Total 0.3 mg/dL (0.2-1.0); Globulin 3.5 g/dL (2.3-3.5); Potassium 3.9 mEq/L (3.5-5.1); Protein, Total 7.2 g/dL (6.4-8.2)
[2023-09-28 19:44] LABS: SARS-CoV-2 Antigen CONTROL BLUE LINE VIS/BG OK; SARS-CoV-2 Antigen Rapid Res Negative (Negative)
--- NOTE | 2023-09-28 19:53 | EDPHYS ---
Physician Documentation [facility] Name: Tiana Kincaid Age: 38 yrs Sex: Female : 1985 Arrival Date: 09/28/2023 Time: 17:55 Bed 19 Private MD: ED Physician Victor Manuel Frederick HPI: 09/27 23:06 This 38 yrs old Female presents to ER via Ambulatory with complaints of Flu Symptoms. kb 23:06 Pt is a 38 year old female who presents for cough, sore throat, congestion, headache kb that started 5 days ago. States she was swimming today and lost her breath while under water so she started to walk inside and felt like she was going to pass out so she came in for evaluation. States she has also had a pain just below left breast that is worse with movement, palpation and breathing. . Historical: - Allergies: 17:58 Reglan; ll1 17:58 sulfamethoxazole-trimethoprim; ll1 - PMHx: 17:58 ADD/ADHD; Arthritis; Narayan; Unspecified Auto Immune; GALLSTONES; ll1 - PSHx: 17:58 Cholecystectomy; ll1 - Immunization history:: Adult Immunizations up to date. - Infectious Disease History:: Denies. - Social history:: Smoking status: Reported history of juuling and/or vaping. Patient denies any tobacco usage or history of. ROS: 19:21 Constitutional: As per HPI kb Exam: 19:20 Constitutional: This is a well developed, well nourished patient who is awake, alert, kb and in no acute distress. Head/Face: Normocephalic, atraumatic. ENT: Moist Mucous membranes Cardiovascular: Regular rate Respiratory: Respirations even and unlabored. No increased work of breathing. Talking in full sentences Abdomen/GI: Soft, non-tender. No distention Skin: Warm, dry with normal turgor. Normal color. MS/ Extremity: Pulses equal, no cyanosis. Neurovascular intact. Full, normal range of motion. Neuro: Awake and alert, GCS 15, oriented to person, place, time, and situation. Moves all extremities. Normal gait. 19:20 ECG was reviewed by the Attending Physician. Vital Signs: 18:03 BP 131 / 84; Pulse 98; Resp 17; Temp 99(O); Pulse Ox 98% on R/A; Weight 83.91 kg; ll1 Height 5 ft. 2 in. ; Pain 10/10; 19:36 BP 140 / 96; Pulse 70; Resp 16; Pulse Ox 99% on R/A; kd3 19:46 BP 120 / 85; Pulse 79; Resp 19; Pulse Ox 100% on R/A; kd3 18:03 Body Mass Index 33.84 (83.91 kg, 157.48 cm) ll1 18:03 Pain Scale: Adult ll1 MDM: 18:01 Patient medically screened. kb 19:21 Data reviewed: vital signs, nurses notes. kb 19:51 Differential diagnosis: uri, pneumonia, flu, covid, strep, pleurisy. Counseling: I had kb a detailed discussion with the patient and/or guardian regarding the historical points, exam findings, and any diagnostic results supporting the discharge/admit diagnosis, lab results, radiology results, the need for outpatient follow up, a family practitioner, to return to the emergency department if symptoms worsen or persist or if there are any questions or concerns that arise at home. 09/27 18:17 Order name: Blood Culture Adult (2) kb 09/27 18:17 Order name: CBC with Diff; Complete Time: 19:26 kb 09/27 18:17 Order name: CMP; Complete Time: 19:33 kb 09/27 18:17 Order name: Lactate w/ 2H reflex if indic.; Complete Time: 19:40 kb 09/27 18:17 Order name: Protime (+inr); Complete Time: 19:26 kb 09/27 18:17 Order name: Ptt, Activated; Complete Time: 19:26 kb 09/27 18:17 Order name: Urinalysis w/ reflexes; Complete Time: 19:23 kb 09/27 18:17 Order name: Flu; Complete Time: 19:44 kb 09/27 18:17 Order name: SARS-COV-2 Antigen Rapid; Complete Time: 19:44 kb 09/27 18:17 Order name: Strep; Complete Time: 19:33 kb 09/27 19:31 Order name: Throat Culture EDMS 09/27 18:17 Order name: Chest Single View XRAY; Complete Time: 18:45 kb 09/27 18:17 Order name: EKG; Complete Time: 18:17 kb 09/27 18:17 Order name: Accucheck; Complete Time: 19:51 kb 09/27 18:17 Order name: Cardiac monitoring; Complete Time: 19:22 kb 09/27 18:17 Order name: EKG - Nurse/Tech; Complete Time: 19:22 kb 09/27 18:17 Order name: IV Saline Lock - Large Bore; Complete Time: 19:08 kb 09/27 18:17 Order name: Labs collected and sent; Complete Time: 19:08 kb 09/27 18:17 Order name: O2 Per Protocol; Complete Time: 19:08 kb 09/27 18:17 Order name: O2 Sat Monitoring; Complete Time: 19:08 kb 09/27 18:17 Order name: Vital Signs; Complete Time: 19:08 kb EC:20 Rate is 69 beats/min. Rhythm is regular. QRS [place] is Normal. TN interval is normal at kb 136 msec. QRS interval is normal at 82 msec. QT interval is normal at 426 msec. Administered Medications: 19:22 Drug: NS 0.9% IV 1000 ml IV at 1000 ml once Route: IV; Rate: 1000 ml; Site: right kd3 antecubital; 20:14 Follow up: IV Status: Completed infusion; IV Intake: 600ml kd3 19:28 Drug: Ketorolac IVP 15 mg IVP once Route: IVP; Site: right antecubital; kd3 20:14 Follow up: Response: No adverse reaction; Pain is decreased kd3 Disposition Summary: 09/28/23 19:52 Discharge Ordered Notes: Location: Home kb Condition: Stable kb Diagnosis - Acute upper respiratory infection, unspecified kb - Syncope Near kb - Pleurisy kb Followup: kb - With: Emergency Department - When: As needed - Reason: Worsening of condition Followup: kb - With: Private Physician - When: 2 - 3 days - Reason: Recheck today's complaints, Continuance of care, Re-evaluation by your physician Discharge Instructions: - Discharge Summary Sheet kb - Near-Syncope kb - Upper Respiratory Infection, Adult, [id number] kb - Pleurisy, [id number] kb - Viral Illness, Adult kb Forms: - Medication Reconciliation Form kb - Antibiotic Education kb - Prescription Opioid Use kb - Patient Portal Instructions kb - Leadership Thank You Letter kb Signatures: Dispatcher [employer] Azalea Box, RIVET HOLE PUNCHER-C RIVET HOLE PUNCHER-Ally Rolon RN RN ll1 Lizeth Palmer, RN RN kd3
--- NOTE | 2023-09-28 19:53 | ER ---
Nurse's Notes [facility] Name: Tiana Kincaid Age: 38 yrs Sex: Female : 1985 Arrival Date: 09/28/2023 Time: 17:55 Bed 19 Private MD: Diagnosis: Acute upper respiratory infection, unspecified;Syncope Near;Pleurisy Presentation: 09/27 18:03 Chief complaint: Patient states: Cough, sore throat, L trunk pain, RUBIN, N/V/D for 5-7 ll1 days. Coronavirus screen: Client denies travel out of the [place] in the last 14 days. congestion, cough unrelated to allergies, fatigue, fever, headache, muscle pain, nausea. Ebola Screen: Patient denies travel to an Ebola-affected area in the 21 days before illness onset. Initial Sepsis Screen: Does the patient meet any 2 criteria? No. Patient's initial sepsis screen is negative. Does the patient have a suspected source of infection? No. Patient's initial sepsis screen is negative. Risk Assessment: Do you want to hurt yourself or someone else? Patient reports no desire to harm self or others. Onset of symptoms was September 22, 2023. 18:03 Method Of Arrival: Ambulatory ll1 18:03 Acuity: DENISE 3 ll1 Triage Assessment: 18:08 General: Appears uncomfortable, Behavior is calm, cooperative, appropriate for age. ll1 General: Reports fever for feeling ill for fatigue for. Pain: Complains of pain in L trunk Quality of pain is described as aching. EENT: Reports pain when swallowing. Neuro: Reports headache weakness. Respiratory: Reports cough that is pain with cough. Historical: - Allergies: 17:58 Reglan; ll1 17:58 sulfamethoxazole-trimethoprim; ll1 - PMHx: 17:58 ADD/ADHD; Arthritis; Narayan; Unspecified Auto Immune; GALLSTONES; ll1 - PSHx: 17:58 Cholecystectomy; ll1 - Immunization history:: Adult Immunizations up to date. - Infectious Disease History:: Denies. - Social history:: Smoking status: Reported history of juuling and/or vaping. Patient denies any tobacco usage or history of. Screenin:20 [facility] ED Fall Risk Assessment (Adult) History of falling in the last 3 months, me1 including since admission No falls in past 3 months (0 pts) Confusion or Disorientation No (0 pts) Intoxicated or Sedated No (0 pts) Impaired Gait No (0 pts) Mobility Assist Device Used No (0 pt) Altered Elimination No (0 pt) Score/Fall Risk Level 0 - 2 = Low Risk Maintained a safe environment, Provided non-skid footwear, Hourly rounding (assess needs \\T\\ fall precautionary measures) done. Abuse screen: Denies threats or abuse. Nutritional screening: No deficits noted. Tuberculosis screening: No symptoms or risk factors identified. Assessment: 18:20 General: Appears uncomfortable, ill, well developed, well nourished, Behavior is calm, me1 cooperative, appropriate for age, Reports Cough, sore throat, L trunk pain, RUBIN, N/V/D for 5-7 days. Pain: Complains of pain in left flank Pain does not radiate. Pain currently is 5 out of 10 on a pain scale. Quality of pain is described as sharp, Pain began suddenly, Is continuous. Neuro: Level of Consciousness is awake, alert, obeys commands, Oriented to person, place, time, situation, Appropriate for age. Neuro: Reports headache. Cardiovascular: Patient's skin is warm and dry. Respiratory: Reports cough that is. Respiratory: Airway is patent Respiratory effort is even, unlabored, Respiratory pattern is regular, symmetrical. GI: Reports nausea, vomiting, since 5-7 days. : No signs and/or symptoms were reported regarding the genitourinary system. EENT: Reports difficulty swallowing sore throat. Derm: Skin is intact, is healthy with good turgor, Skin is pink, warm \\T\\ dry. Musculoskeletal: No signs and/or symptoms reported regarding the musculoskeletal system. 19:40 General: Appears uncomfortable, Behavior is calm, cooperative, crying. General: Pt is kd3 seen, tearful in the stretcher. Pt reports pain on the back and roof of her throat, as well as her chest. Pt asked if the back of her throat was inspected because there are "Large purple blisters on the roof of her mouth that are extremely painful". This RN confirmed with the PASTE UP WORKER that the back of the throat was inspected. Pt administered 15 of ketorolac for pain. Pt remains tearful. PASTE UP WORKER is agreeable to inspect her throat again. . Pain: Complains of pain in anterior aspect of left upper chest, mid-sternal area, soft palate, uvula, left aspect of posterior pharynx and right aspect of posterior pharynx. Neuro: Level of Consciousness is awake, alert, obeys commands, Oriented to person, place, time, situation. Respiratory: Reports cough that is Airway is patent Trachea midline Respiratory effort is even, unlabored, Respiratory pattern is regular, symmetrical. Vital Signs: 18:03 BP 131 / 84; Pulse 98; Resp 17; Temp 99(O); Pulse Ox 98% on R/A; Weight 83.91 kg; ll1 Height 5 ft. 2 in. ; Pain 10/10; 19:36 BP 140 / 96; Pulse 70; Resp 16; Pulse Ox 99% on R/A; kd3 19:46 BP 120 / 85; Pulse 79; Resp 19; Pulse Ox 100% on R/A; kd3 18:03 Body Mass Index 33.84 (83.91 kg, 157.48 cm) 1 18:03 Pain Scale: Adult [facility] ED Course: 17:58 Patient arrived in ED. rg4 17:58 Arm band placed on. 1 18:01 Azalea Fonseca FNP-C is PHCP. kb 18:01 Victor Manuel Frederick MD is Attending Physician. kb 18:05 Triage completed. 1 18:05 Patient placed in an exam room, on a stretcher. 1 18:20 Megha Dutta, RN is Primary Nurse. me1 18:20 Patient has correct armband on for positive identification. Bed in low position. Call [facility] light in reach. Side rails up X2. Provided Education on: POC. Verbalized understanding. . Client placed on continuous cardiac and pulse oximetry monitoring. NIBP monitoring applied. Pulse ox on. NIBP on. 18:20 No provider procedures requiring assistance completed. me1 18:27 Chest Single View XRAY In Process Unspecified. EDMS 18:52 Initial lab(s) drawn, by sd, sent to lab. First set of blood cultures drawn Urine [facility] collected: clean catch specimen, clear, COVID swab sent to lab. Flu and/or RSV swab sent to lab. Strep swab sent to lab. 19:02 Inserted saline lock: 22 gauge in right antecubital area, using aseptic technique. sd1 19:07 Second set of blood cultures drawn by me. me1 19:08 Blood Culture Adult (2) Sent. me1 19:08 CBC with Diff Sent. me1 19:08 CMP Sent. sd1 19:08 Lactate w/ 2H reflex if indic. Sent. me1 19:08 Protime (+inr) Sent. me1 19:08 Ptt, Activated Sent. me1 19:08 Urinalysis w/ reflexes Sent. me1 19:22 Strep Sent. kd3 19:22 SARS-COV-2 Antigen Rapid Sent. kd3 19:22 Flu Sent. kd3 20:14 IV discontinued, intact, bleeding controlled, No redness/swelling at site. Pressure kd3 dressing applied. Administered Medications: 19:22 Drug: NS 0.9% IV 1000 ml IV at 1000 ml once Route: IV; Rate: 1000 ml; Site: right kd3 antecubital; 20:14 Follow up: IV Status: Completed infusion; IV Intake: 600ml kd3 19:28 Drug: Ketorolac IVP 15 mg IVP once Route: IVP; Site: right antecubital; kd3 20:14 Follow up: Response: No adverse reaction; Pain is decreased kd3 Medication: 18:20 VIS not applicable for this client. sd1 Intake: 20:14 IV: 600ml; Total: 600ml. kd3 Outcome: 19:52 Discharge ordered by . kb 20:13 Discharged to home ambulatory, kd3 20:13 Condition: stable 20:13 Discharge instructions given to patient, Instructed on discharge instructions, follow up and referral plans. Demonstrated understanding of instructions, follow-up care, 20:14 Patient left the ED. kd3 Signatures: Dispatcher [employer] EDNJ Azalea Fonseca, CHAIN TESTING MACHINE OPERATOR-C CHAIN TESTING MACHINE OPERATOR-Valentine Agarwal rg4 Ally Garcia RN RN ll1 Lizeth Palmer RN RN kd3 Megha Dutta, JIN RN sd1 Corrections: (The following items were deleted from the chart) 19:33 18:03 Chief complaint: Patient states: Cough, sore throat, L trunk pain, RUBIN, N/V/D for me1 5-7 days. ll1 19:47 19:40 General: Pt is seen, tearful in the stretcher. Pt reports pain on the back and kd3 roof of her throat, as well as her chest. Pt asked if the back of her throat was inspected because there are "Large purple blisters on the roof of her mouth that are extremely painful". This RN confirmed with the PASTE UP WORKER that the back of the throat was inspected. Pt administered 15 of ketorolac for pain. Pt remains tearful. . kd3
[2023-09-28 21:01] VITALS: BP 120/85; TEMP 99; O2SAT 100
--- NOTE | 2023-10-01 15:01 | EKG ---
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
== END 2023-09-28 20:14 | disposition home or self-care (01) ==
LOC: ER 17:55
DX: J06.9 Acute upper respiratory infection, unspecified (principal); R09.1 Pleurisy; R55 Syncope and collapse; Z11.52 Encounter for screening for COVID-19
CPT/HCPCS: 96361; 87040 ×2; 87070; 85025; 81001; 36415; 85610; 87081; 83605; 85730; 80053; 87804 ×2; 71045; 96374; 99284; 87811; J7030; 93005